=== PATIENT | female | born 1955 | race American Indian/Alaskan Native ===

== ENCOUNTER 2020-04-19 20:16 | Inpatient (IN) | payer MEDICARE ==
--- NOTE | 2020-04-19 22:13 | XRay Report ---
CHEST 2 VIEWS INDICATION / CLINICAL INFORMATION: fluid overload. sob. COMPARISON: 03/31/2020 FINDINGS: SUPPORT DEVICES: Stable, satisfactory device positioning. HEART / MEDIASTINUM: Moderate-large hiatal hernia. Cardiac silhouette is within normal limits. Hilar mediastinal contours demonstrate some cephalization of the pulmonary vasculature. LUNGS / PLEURA: No significant pulmonary or pleural abnormality. No pneumothorax. ADDITIONAL FINDINGS: No significant additional findings. IMPRESSION: 1. No acute findings. Signer Name: Rafiq Esteban MD Signed: 04/19/2020 10:09 PM Workstation Name: [id number]
[2020-04-19 23:04] LABS: Basophils # (Auto) 0.2 K/mm3 (0.0-0.1); Basophils % (Auto) 1.6 % (0.0-1.8); Eosinophils # (Auto) 0.1 K/mm3 (0.0-0.4); Eosinophils % (Auto) 1.1 % (0.0-4.3); Hematocrit 24.1 % (30.3-42.9); Hemoglobin 7.5 gm/dl (10.1-14.3); Lymphocytes # (Auto) 1.7 K/mm3 (1.2-5.4); Lymphocytes % (Auto) 15.1 % (13.4-35.0); Mean Corpuscular HGB Conc 31 % (30-34); Mean Corpuscular Volume 92 fl (79-97); Monocytes # (Auto) 1.3 K/mm3 (0.0-0.8); Monocytes % (Auto) 11.1 % (0.0-7.3); Platelet Count 253 K/mm3 (140-440); Red Blood Count 2.62 M/mm3 (3.65-5.03)
[2020-04-19 23:19] LABS: Red Cell Distribution Width 22.6 % (13.2-15.2)
[2020-04-19 23:26] LABS: INR 1.01 (0.87-1.13)
[2020-04-19 23:33] LABS: Alanine Aminotransferase 13 units/L (7-56); Albumin 3.3 g/dL (3.9-5); Blood Urea Nitrogen 14 mg/dL (7-17); Hemolysis Index 1
[2020-04-19 23:34] LABS: BUN/Creatinine Ratio 28
[2020-04-20] MEDS ORDERED: FUROSEMIDE 40 MG/4 ML INJ IV ONE (03:01)
[2020-04-20] MEDS ORDERED: dilTIAZem 25 MG/5 ML INJ IV ONE ×2 (03:01→04:11)
[2020-04-20] MEDS ORDERED: POTASSIUM CHLORIDE ER 20 MEQ TAB PO ONE (03:06)
--- NOTE | 2020-04-20 03:06 | Emergency Department Report ---
HPI - General Chief Complaint: Extremity Injury, Lower Time Seen by Provider: 04/20/20 02:46 - HPI HPI: Room 37 The patient is a 64-year-old female present with a chief complaint of lower extremity edema palpitations and shortness of breath. Patient has a history of CHF and atrial fibrillation. The patient states approximate 3 days ago she lost her medication of which Lasix and Eliquis are included. The patient states over the past 3 days she has noticed increased swelling to her both lower extremities, jitteriness and palpitations in addition to shortness of breath. Patient denies chest pain, cough or fever. Patient denies any known contact with Covid positive patients ED Past Medical Hx - Past Medical History Previous Medical History?: Yes Hx Hypertension: Yes Hx Congestive Heart Failure: Yes Hx Diabetes: Yes Hx Asthma: Yes (bronchitis) Additional medical history: afib. hypothyroid - Surgical History Past Surgical History?: Yes Hx Pacemaker: Yes Hx Cholecystectomy: Yes Additional Surgical History: left femur repair - Family History Family history: no significant - Social History Smoking Status: Former Smoker (None times a year) Substance Use Type: Alcohol (Occasional) ED Review of Systems ROS: Stated complaint: SWELLING IN FEET AND LEGS FROM SURGERY Other details as noted in HPI Constitutional: denies: fever Eyes: denies: eye pain ENT: denies: throat pain Respiratory: shortness of breath, SOB with exertion Cardiovascular: palpitations. denies: chest pain Endocrine: no symptoms reported Gastrointestinal: denies: abdominal pain Genitourinary: denies: dysuria Musculoskeletal: denies: back pain Neurological: denies: headache Hematological/Lymphatic: other (Bilateral lower extremity edema) Physical Exam - Physical Exam Vital Signs: Vital Signs 04/19/20 04/20/20 21:01 02:41 Temperature 98.5 F Pulse Rate 88 113 H Respiratory 16 20 Rate Blood Pressure 110/71 Blood Pressure 163/94 [Left] O2 Sat by Pulse 97 97 Oximetry Physical Exam: GENERAL: The patient is well-developed well-nourished female sitting on stretcher exhibiting mildly increased work of breathing. [] HEENT: Normocephalic. Atraumatic. Extraocular motions are intact. Patient has moist mucous membranes. NECK: Supple. Trachea midline CHEST/LUNGS: Clear to auscultation. There is slightly increased work of breathing HEART/CARDIOVASCULAR: Irregularly irregular. There is tachycardia. A. fib with RVR on the monitor ABDOMEN: Abdomen is soft, nontender. Patient has normal bowel sounds. There is no abdominal distention. SKIN: There is no rash. There is 2-3+ bilateral lower extremity pitting edema. There is no diaphoresis. NEURO: The patient is awake, alert, and oriented. The patient is cooperative. The patient has no focal neurologic deficits. The patient has normal speech MUSCULOSKELETAL: There is no evidence of acute injury. ED Course Vital Signs 04/19/20 04/20/20 21:01 02:41 Temperature 98.5 F Pulse Rate 88 113 H Respiratory 16 20 Rate Blood Pressure 110/71 Blood Pressure 163/94 [Left] O2 Sat by Pulse 97 97 Oximetry - Reevaluation(s) Reevaluation #1: 04/20/20 04:11 Patient not rate controlled after first round of diltiazem. Will administer second dose and initiate diltiazem drip ED Medical Decision Making - Lab Data Result diagrams: 04/19/20 22:19 04/19/20 22:19 Laboratory Tests 04/19/20 04/19/20 04/19/20 22:19 22:19 22:19 WBC 11.4 H RBC 2.62 L Hgb 7.5 L Hct 24.1 L MCV 92 MCH 29 MCHC 31 RDW 22.6 H Plt Count 253 Lymph % (Auto) 15.1 [place] % (Auto) 11.1 H Eos % (Auto) 1.1 Baso % (Auto) 1.6 Lymph # (Auto) 1.7 [place] # (Auto) 1.3 H Eos # (Auto) 0.1 Baso # (Auto) 0.2 H Seg Neutrophils % 71.1 H Seg Neutrophils # 8.1 H PT 13.2 INR 1.01 Sodium 139 Potassium 3.3 L Chloride 102.3 Carbon Dioxide 26 Anion Gap 14 BUN 14 Creatinine 0.5 L Estimated GFR > 60 BUN/Creatinine Ratio 28 Glucose 98 Calcium 8.0 L Total Bilirubin 0.90 AST 18 ALT 13 Alkaline Phosphatase 138 H NT-Pro-B Natriuret Pep Total Protein 5.9 L Albumin 3.3 L Albumin/Globulin Ratio 1.3 04/19/20 22:19 WBC RBC Hgb Hct MCV MCH MCHC RDW Plt Count Lymph % (Auto) [place] % (Auto) Eos % (Auto) Baso % (Auto) Lymph # (Auto) [place] # (Auto) Eos # (Auto) Baso # (Auto) Seg Neutrophils % Seg Neutrophils # PT INR Sodium Potassium Chloride Carbon Dioxide Anion Gap BUN Creatinine Estimated GFR BUN/Creatinine Ratio Glucose Calcium Total Bilirubin AST ALT Alkaline Phosphatase NT-Pro-B Natriuret Pep 476.3 Total Protein Albumin Albumin/Globulin Ratio - EKG Data -: EKG Interpreted by Me Rate: tachycardia (118 bpm) - EKG Data Interpretation: nonspecific ST-T wave mushtaq (T wave inversion in lead aVL), other (Atrial fibrillation with a rapid ventricular response) - Radiology Data Radiology results: report reviewed (Chest x-ray), image reviewed (Chest x-ray) interpreted by me: Chest x-ray-no focal infiltrates, no pneumothorax. No pulmonary edema appreciated [facility] [address] [place] [address] XRay Report Signed Patient: CONY MARTINEZ MR#: [id number] [birth year] : 1955 Acct:[id number] Age/Sex: 64 / F ADM Date: 04/19/20 Loc: ED Attending Dr: Ordering Physician: OSIRIS FALLON Date of Service: 04/19/20 Procedure(s): XR chest routine 2V Accession Number(s): [id number] cc: OSIRIS FALLON Fluoro Time In Minutes: CHEST 2 VIEWS INDICATION / CLINICAL INFORMATION: fluid overload. sob. COMPARISON: 03/31/2020 FINDINGS: SUPPORT DEVICES: Stable, satisfactory device positioning. HEART / MEDIASTINUM: Moderate- large hiatal hernia. Cardiac silhouette is within normal limits. Hilar mediastinal contours demonstrate some cephalization of the pulmonary vasculature. LUNGS / PLEURA: No significant pulmonary or pleural abnormality. No pneumothorax. ADDITIONAL FINDINGS: No significant additional findings. IMPRESSION: 1. No acute findings. Signer Name: Yoni Etseban MD Signed: 04/19/2020 10:09 PM Workstation Name: [id number] Transcribed By: Dictated By: YONI ESTEBAN III Electronically Authenticated By: YONI ESTEBAN III Signed Date/Time: 04/19/202208 DD/ 07 TD/TT: - Differential Diagnosis CHF exacerbation, pneumonia, A. fib with RVR Critical care attestation.: If time is entered above; I have spent that time in minutes in the direct care of this critically ill patient, excluding procedure time. ED Disposition Clinical Impression: CHF exacerbation, Atrial fibrillation with rapid ventricular response, Hypokalemia Disposition: OP ADMIT IP TO THIS HOSP Is pt being admited?: Yes Does the pt Need Aspirin: No Condition: Stable Referrals: PRIMARY CARE,MD [Primary Care Provider] - 3-5 Days Time of Disposition: 04:13 (Hospitalist paged)
[2020-04-20] MEDS ORDERED: APIXABAN 5 MG TAB PO ONE (04:13)
[2020-04-20] MEDS ORDERED: NITROGLYCERIN 0.4 MG TAB SUBL SL PRN (04:26)
[2020-04-20] MEDS ORDERED: MORPHINE 2 MG/1 ML INJ IV PRN (04:26)
[2020-04-20] MEDS ORDERED: DEXTROSE 50% IN WATER (25GM) 50 ML SYRINGE IV PRN (04:28)
[2020-04-20] MEDS ORDERED: ACETAMINOPHEN 325 MG TAB PO PRN (04:28)
[2020-04-20] MEDS ORDERED: ALBUTEROL 2.5 MG/3 ML NEBU IH PRN (04:28)
[2020-04-20] MEDS ORDERED: ONDANSETRON 4 MG/2 ML INJ IV PRN (04:28)
[2020-04-20] MEDS ORDERED: CALCIUM CHLORIDE 1,000 MG/10 ML SYRINGE IV ONE (04:31)
[2020-04-20] MEDS ORDERED: dilTIAZem/D5W 100 MG/100 ML BAG IV SCH (05:00)
--- NOTE | 2020-04-20 05:08 | History and Physical Report ---
History of Present Illness Date of examination: 04/20/20 Date of admission: 04/20/2020 Chief complaint: ble edema and palpitation History of present illness: 64-year-old -E[place]ian female with history of hypertension, A. fib on anticoagulation, diabetes, asthma, bronchitis, and hypothyroidism who presents to [facility] ED with complaints of bilateral lower extremity edema, palpitations, and shortness of breath. Patient has history of CHF and atrial fibrillation, and is usually rate controlled and on anticoagulation. However patient's medication was misplaced due to recent hospitalization in the facility (in [place]) requested that patient bring all her home meds in for use. Patient is unsure if she ever received her medication at discharge. Over the past 3 days she noticed increased swelling to bilateral lower extremities, palpitations, and worsening shortness of breath. She decided come into the ED for further evaluation and treatment. Denies chest pain, fever, chills, cough, sputum production, nausea, vomiting, diarrhea, headache, abdominal pain, generalized weakness, alterations in vision, or recent sick contacts Past History Past Medical History: other (Heart failure, A. fib, diabetes, asthma, bro nchitis, hypothyroidism, GERD) Past Surgical History: Other (Left femur repair (03/2020), pacemaker, cholecystectomy) Social history: lives with family, full code, other (Former smoker). denies: smoking, alcohol abuse Family history: hypertension Medications and Allergies Allergies Allergy/AdvReac Type Severity Reaction Status Date / Time ranitidine [From Zantac] Allergy Unknown Verified 04/19/20 21:10 Active Meds: Active Medications Acetaminophen (Acetaminophen 325 Mg Tab) 650 mg PO Q4H PRN PRN Reason: Pain MILD(1-3)/Fever >100.5/MULLINS Albuterol (Albuterol 2.5 Mg/3 Ml Nebu) 2.5 mg IH Q3HRT PRN PRN Reason: Shortness Of Breath Apixaban (Apixaban 5 Mg Tab) 5 mg PO Q12HR WILLIE; Protocol Aspirin (Aspirin 81 Mg Tab Chew) 81 mg PO QDAY WILLIE Dextrose (Dextrose 50% In Water (25gm) 50 Ml Syringe) 0 ml IV Q30MIN PRN; Protocol PRN Reason: Hypoglycemia Docusate Sodium (Docusate Sodium 100 Mg Cap) 100 mg PO BID WILLIE Furosemide (Furosemide 40 Mg/4 Ml Inj) 40 mg IV BID@0600,1800 WILLIE Diltiazem HCl (Cardizem/D5w 100mg/100ml) 100 mg in 100 mls @ 5 mls/hr IV TITR WILLIE; Protocol Insulin Human Lispro (Insulin Lispro 100 Unit/Ml) 0 unit SUB-Q ACHS WILLIE; Protocol Morphine Sulfate (Morphine 2 Mg/1 Ml Inj) 2 mg IV Q5MIN PRN PRN Reason: Chest Pain unrelieved by NTG Nitroglycerin (Nitroglycerin 0.4 Mg Tab Subl) 0.4 mg SL .Q5MIN PRN PRN Reason: Chest Pain Ondansetron HCl (Ondansetron 4 Mg/2 Ml Inj) 4 mg IV Q8H PRN PRN Reason: Nausea And Vomiting Oxycodone/Acetaminophen (Oxycodone /Acetaminophen 5-325mg Tab) 1 tab PO Q6H PRN PRN Reason: Pain, Moderate (4-6) Pantoprazole Sodium (Pantoprazole 40 Mg Tab) 40 mg PO BID WILLIE Potassium Chloride (Potassium Chloride Er 10 Meq Tab) 10 meq PO QDAY WILLIE Sodium Chloride (Sodium Chloride 0.9% 10 Ml Flush Syringe) 10 ml IV BID WILLIE Sodium Chloride (Sodium Chloride 0.9% 10 Ml Flush Syringe) 10 ml IV PRN PRN PRN Reason: LINE FLUSH Review of Systems All systems: negative (As noted in HPI) Exam - Physical Exam Narrative exam: Physical exam General appearance: Present: No acute distress, alert and oriented 3, - Egyptian older adult female - EENT Eyes: Present: PERRL, EOM intact ENT: hearing intact, normal dentition - Neck Neck: Present: supple, normal ROM - Respiratory Respiratory effort: Non-labored Respiratory: Diminished - Cardiovascular Heart rate: 150 (bpm) Rhythm: A. fib with RVR Heart Sounds: Present: S1 & S2. Absent: rub, click - Extremities Extremities: no ischemia, pulses intact, bilateral lower extremity 3+ pitting edema - Peripheral Assessment Peripheral Pulses: within normal limits - Abdominal General gastrointestinal: soft, non-tender, normal bowel sounds - Integumentary Integumentary: Present: warm, dry - Musculoskeletal Musculoskeletal: Able to move all extremities -Neurological Neurological: CN II-XII intact - Psychiatric Psychiatric: cooperative - Constitutional Vitals: Temp Pulse Resp BP Pulse Ox 98.5 F 118 H 20 131/87 97 01/25/21 21:01 04/20/20 03:53 04/20/20 02:41 04/20/20 03:53 04/20/20 02:41 Results - Labs CBC & Chem 7: 04/19/20 22:19 04/19/20 22:19 Labs: Laboratory Last Values WBC 11.4 K/mm3 (4.5-11.0) H 04/19/20 22:19 RBC 2.62 M/mm3 (3.65-5.03) L 04/19/20 22:19 Hgb 7.5 gm/dl (10.1-14.3) L 04/19/20 22:19 Hct 24.1 % (30.3-42.9) L 04/19/20 22:19 MCV 92 fl (79-97) 04/19/20 22:19 MCH 29 pg (28-32) 04/19/20 22:19 MCHC 31 % (30-34) 04/19/20 22:19 RDW 22.6 % (13.2-15.2) H 04/19/20 22:19 Plt Count 253 K/mm3 (140-440) 04/19/20 22:19 Lymph % (Auto) 15.1 % (13.4-35.0) 04/19/20 22:19 [place] % (Auto) 11.1 % (0.0-7.3) H 04/19/20 22:19 Eos % (Auto) 1.1 % (0.0-4.3) 04/19/20 22:19 Baso % (Auto) 1.6 % (0.0-1.8) 04/19/20 22:19 Lymph # (Auto) 1.7 K/mm3 (1.2-5.4) 04/19/20 22:19 [place] # (Auto) 1.3 K/mm3 (0.0-0.8) H 04/19/20 22:19 Eos # (Auto) 0.1 K/mm3 (0.0-0.4) 04/19/20 22:19 Baso # (Auto) 0.2 K/mm3 (0.0-0.1) H 04/19/20 22:19 Seg Neutrophils % 71.1 % (40.0-70.0) H 04/19/20 22:19 Seg Neutrophils # 8.1 K/mm3 (1.8-7.7) H 04/19/20 22:19 PT 13.2 Sec. (12.2-14.9) 04/19/20 22:19 INR 1.01 (0.87-1.13) 04/19/20 22:19 Sodium 139 mmol/L (137-145) 04/19/20 22:19 Potassium 3.3 mmol/L (3.6-5.0) L 04/19/20 22:19 Chloride 102.3 mmol/L (98-107) 04/19/20 22:19 Carbon Dioxide 26 mmol/L (22-30) 04/19/20 22:19 Anion Gap 14 mmol/L 04/19/20 22:19 BUN 14 mg/dL (7-17) 04/19/20 22:19 Creatinine 0.5 mg/dL (0.6-1.2) L 04/19/20 22:19 Estimated GFR > 60 ml/min 04/19/20 22:19 BUN/Creatinine Ratio 28 % 04/19/20 22:19 Glucose 98 mg/dL (65-100) 04/19/20 22:19 Calcium 8.0 mg/dL (8.4-10.2) L 04/19/20 22:19 Total Bilirubin 0.90 mg/dL (0.1-1.2) 04/19/20 22:19 AST 18 units/L (5-40) 04/19/20 22:19 ALT 13 units/L (7-56) 04/19/20 22:19 Alkaline Phosphatase 138 units/L (35-129) H 04/19/20 22:19 NT-Pro-B Natriuret Pep 476.3 pg/mL (0-900) 04/19/20 22:19 Total Protein 5.9 g/dL (6.3-8.2) L 04/19/20 22:19 Albumin 3.3 g/dL (3.9-5) L 04/19/20 22:19 Albumin/Globulin Ratio 1.3 % 04/19/20 22:19 - Imaging and Cardiology Chest x-ray: report reviewed, image reviewed [place]/IV: IV Catheter Type [Right INT / Saline Lock External Jugular] Assessment and Plan Assessment and plan: Atrial fibrillation with RVR -History of A. fib -Noncompliance with meds due to recent hospitalization and misplacement of meds -Received diltiazem bolus with no response in ED, started on diltiazem drip -Echo pending -Cardiology consult pending -Resume Eliquis -Resume home meds once medication reconciliation has been completed Acute on chronic CHF -Patient has 3+ bilateral lower extremity edema -Complaints of worsening dyspnea -Start IV Lasix twice a day -Echo pending -Cardiology consulted Hypokalemia -Potassium on admission -Ordered potassium replacement -Continue to monitor replete prn GERD -History of GERD, continue Protonix Anemia -Hemoglobin on admission 7.5 -Stable -No s/s of active bleeding -Continue to monitor hemoglobin -Transfuse as needed Asthma -History of asthma -Albuterol as needed DM -POC BG monitoring -SSI coverage prn -HgbA1C pending Hypothyroidism -History of hypothyroidism -TSH pending -We will need to resume Synthroid once medication reconciliation has been completed Advance Directives: No VTE prophylaxis?: Chemical, Mechanical Plan of care discussed with patient/family: Yes
[2020-04-20] MEDS: INSULIN LISPRO 100 UNIT/ML SUB-Q SCH ×4 (08:54→23:01)
[2020-04-20] MEDS ORDERED: FAMOTIDINE 20 MG/2 ML INJ IV SCH (10:00)
[2020-04-20] MEDS: ASPIRIN 81 MG TAB CHEW PO SCH (10:40)
[2020-04-20] MEDS: DOCUSATE SODIUM 100 MG CAP PO SCH ×2 (10:40→23:01)
[2020-04-20] MEDS: POTASSIUM CHLORIDE ER 10 MEQ TAB PO SCH (10:40)
[2020-04-20] MEDS: PANTOPRAZOLE 40 MG TAB PO SCH ×2 (10:40→23:01)
--- NOTE | 2020-04-20 11:09 | Consultation ---
History of Present Illness Consult date: 04/20/20 Requesting physician: JEREMIE ARNDT Consult reason: atrial fibrillation, congestive heart failure History of present illness: The patient is a 64-year-old female with a past medical history of HF, paroxysmal atrial fibrillation, anticoagulated on Eliquis, anemia requiring PRBC transfusion, "sick sinus syndrome" with PPM in situ, HTN, DM. She is previously unknown to our practice - she is in the process of relocating from [place]. She presented with c/o SOB, palpitations and BLE swelling for several days prior to arrival. She admits that she has not taken any prescription medications for 4 days prior to arrival because she lost her medications. Following arrival, pt was noted to be in AFib RVR and was initiated on IV cardizem. Labwork is noted to be significant for H/H 7.5/24.1. Pt denies any overt s/s bleeding. She reports recent h/o significant anemia requiring PRBC tx in [place] 4 months ago - she is unsure whether endoscopy or GI evaluation was performed at that time. Past History Past Medical History: other (as per HPI) Past Surgical History: Other (Left femur repair (03/2020), pacemaker, cholecystectomy) Social history: lives with family, full code, other (Former smoker). denies: smoking, alcohol abuse Family history: hypertension Medications and Allergies Allergies Allergy/AdvReac Type Severity Reaction Status Date / Time ranitidine [From Zantac] Allergy Unknown Verified 04/19/20 21:10 Active Meds: Active Medications Acetaminophen (Acetaminophen 325 Mg Tab) 650 mg PO Q4H PRN PRN Reason: Pain MILD(1-3)/Fever >100.5/MULLINS Albuterol (Albuterol 2.5 Mg/3 Ml Nebu) 2.5 mg IH Q3HRT PRN PRN Reason: Shortness Of Breath Aspirin (Aspirin 81 Mg Tab Chew) [address] [facility] Last Admin: 04/20/20 10:40 Dose: 81 mg Documented by: Dextrose (Dextrose 50% In Water (25gm) 50 Ml Syringe) 0 ml IV Q30MIN PRN; Protocol PRN Reason: Hypoglycemia Docusate Sodium (Docusate Sodium 100 Mg Cap) [address] [facility] Last Admin: 04/20/20 10:40 Dose: 100 mg Documented by: Furosemide (Furosemide 40 Mg/4 Ml Inj) 40 mg IV BID@0600,1800 [facility] Diltiazem HCl (Cardizem/D5w 100mg/100ml) 100 mg in 100 mls @ 5 mls/hr IV TITR [facility]; Protocol Last Admin: 04/20/20 05:15 Dose: 5 mg/hr, 5 mls/hr Documented by: Insulin Human Lispro (Insulin Lispro 100 Unit/Ml) 0 unit SUB-Q ACHS [facility]; Protocol Last Admin: 04/20/20 08:54 Dose: Not Given Documented by: Morphine Sulfate (Morphine 2 Mg/1 Ml Inj) 2 mg IV Q5MIN PRN PRN Reason: Chest Pain unrelieved by NTG Nitroglycerin (Nitroglycerin 0.4 Mg Tab Subl) 0.4 mg SL .Q5MIN PRN PRN Reason: Chest Pain Ondansetron HCl (Ondansetron 4 Mg/2 Ml Inj) 4 mg IV Q8H PRN PRN Reason: Nausea And Vomiting Oxycodone/Acetaminophen (Oxycodone /Acetaminophen 5-325mg Tab) 1 tab PO Q6H PRN PRN Reason: Pain, Moderate (4-6) Pantoprazole Sodium (Pantoprazole 40 Mg Tab) [address] [facility] Last Admin: 04/20/20 10:40 Dose: 40 mg Documented by: Potassium Chloride (Potassium Chloride Er 10 Meq Tab) [address] [facility] Last Admin: 04/20/20 10:40 Dose: 10 meq Documented by: Sodium Chloride (Sodium Chloride 0.9% 10 Ml Flush Syringe) [address] [facility] Last Admin: 04/20/20 10:40 Dose: 10 ml Documented by: Sodium Chloride (Sodium Chloride 0.9% 10 Ml Flush Syringe) 10 ml IV PRN PRN PRN Reason: LINE FLUSH Review of Systems Constitutional: no fever, no chills, no sweats Ears, nose, mouth and throat: no ear pain, no nose pain, no sinus pressure, no sinus pain Cardiovascular: orthopnea, palpitations, edema, shortness of breath, dyspnea on exertion, leg edema, decreased exercise tolerance, no chest pain, no syncope, no lightheadedness Respiratory: shortness of breath, dyspnea on exertion, no cough, no congestion, no wheezing Gastrointestinal: no abdominal pain, no nausea, no vomiting, no diarrhea, no constipation, no change in bowel habits Genitourinary Female: no pelvic pain, no flank pain, no dysuria, no urinary frequency, no urgency Musculoskeletal: no neck stiffness, no neck pain, no shooting arm pain, no arm numbness/tingling, no low back pain, no shooting leg pain Integumentary: no rash, no pruritis, no redness, no sores, no wounds Neurological: no head injury, no paralysis, no weakness, no parathesias, no numbness, no tingling, no seizures, no syncope Psychiatric: no anxiety Endocrine: no cold intolerance, no heat intolerance Hematologic/Lymphatic: no easy bruising, no easy bleeding Allergic/Immunologic: no urticaria Physical Examination Vital Signs Temp Pulse Resp BP Pulse Ox 98.5 F 88 16 110/71 97 04/19/20 21:01 04/19/20 21:01 04/19/20 21:01 04/19/20 21:01 04/19/20 21:01 General appearance: no acute distress HEENT: Positive: PERRL, Normocephaly, Mucus Membranes Moist Neck: Positive: neck supple, trachea midline Cardiac: Positive: irregularly irregular, S1/S2 Lungs: Positive: Decreased Breath Sounds Neuro: Positive: Grossly Intact Abdomen: Negative: Tender Skin: Negative: Rash Musculoskeletal: No Pain Extremities: Present: +2 Edema (BLE) Results 04/19/20 22:19 04/19/20 22:19 Cardiac Enzymes 04/19/20 Range/Units 22:19 AST 18 (5-40) units/L Coagulation 04/19/20 Range/Units 22:19 PT 13.2 (12.2-14.9) Sec. INR 1.01 (0.87-1.13) CBC 04/19/20 Range/Units 22:19 WBC 11.4 H (4.5-11.0) K/mm3 RBC 2.62 L (3.65-5.03) M/mm3 Hgb 7.5 L (10.1-14.3) gm/dl Hct 24.1 L (30.3-42.9) % Plt Count 253 (140-440) K/mm3 Lymph # (Auto) 1.7 (1.2-5.4) K/mm3 [place] # (Auto) 1.3 H (0.0-0.8) K/mm3 Eos # (Auto) 0.1 (0.0-0.4) K/mm3 Baso # (Auto) 0.2 H (0.0-0.1) K/mm3 Comprehensive Metabolic Panel 04/19/20 Range/Units 22:19 Sodium 139 (137-145) mmol/L Potassium 3.3 L (3.6-5.0) mmol/L Chloride 102.3 (98-107) mmol/L Carbon Dioxide 26 (22-30) mmol/L BUN 14 (7-17) mg/dL Creatinine 0.5 L (0.6-1.2) mg/dL Glucose 98 (65-100) mg/dL Calcium 8.0 L (8.4-10.2) mg/dL AST 18 (5-40) units/L ALT 13 (7-56) units/L Alkaline Phosphatase 138 H (35-129) units/L Total Protein 5.9 L (6.3-8.2) g/dL Albumin 3.3 L (3.9-5) g/dL - Imaging and Cardiology Echo: report reviewed EKG: report reviewed, image reviewed EKG interpretations - Telemetry EKG Rhythm: Sinus Rhythm - EKG Sinus rhythms and dysrhythmias: sinus rhythm Supraventricular dysrhythmia: atrial premature complexe Assessment and Plan tte reviewed - EF 55-60%, impaired relaxation, pacemaker wire in RV, mild pulm HTN, RVSP 45mmHg. On evaluation, pt has converted to SR with freq PACs. D/c cardizem gtt and initiate PO cardizem. Pt may tx to telemetry from cardiology standpoint. Agree with IV lasix. F/u BMP in AM. Pt is noted to have significant symptomatic anemia. She denies any overt s/s bleeding, is anticoagulated with Eliquis at home (although she was noncompliant with home medications for 4 days prior to arrival). She reports recent h/o significant anemia requiring PRBC tx in [place] 4 months ago - she is unsure whether endoscopy or GI evaluation was performed at that time. Pt would benefit from director long term care systemic AC in regards to PAFib. However, hold Eliquis in setting of significant anemia and recommend GI consultation per primary. Resume systemic AC if/when ok per GI team. F/u CBC in AM. Will follow. The patient has been seen in conjunction with Dr. Boy Vera who agrees with the assessment and plan of care. - Patient Problems (1) Paroxysmal atrial fibrillation with RVR Current Visit: Yes Status: Acute (2) Acute heart failure with preserved ejection fraction (HFpEF) Current Visit: Yes Status: Acute (3) Symptomatic anemia Current Visit: Yes Status: Acute (4) Cardiac pacemaker in situ Current Visit: Yes Status: Chronic (5) HTN (hypertension) Current Visit: Yes Status: Chronic (6) Diabetes Current Visit: Yes Status: Chronic
[2020-04-20] MEDS: oxyCODONE /ACETAMINOPHEN 5-325MG TAB PO PRN (12:43)
[2020-04-20] MEDS: dilTIAZem 60 MG TAB PO SCH ×2 (12:43→18:51)
[2020-04-20] MEDS: FUROSEMIDE 40 MG/4 ML INJ IV SCH ×2 (18:51→18:53)
[2020-04-20 19:33] LABS: Hematocrit 23.4 % (30.3-42.9); Hemoglobin 7.5 gm/dl (10.1-14.3)
[2020-04-20] MEDS ORDERED: APIXABAN 5 MG TAB PO SCH (20:00)
[2020-04-21] MEDS: dilTIAZem 60 MG TAB PO SCH ×5 (01:16→23:54)
[2020-04-21] MEDS: oxyCODONE /ACETAMINOPHEN 5-325MG TAB PO PRN ×3 (01:17→23:57)
[2020-04-21] MEDS: FUROSEMIDE 40 MG/4 ML INJ IV SCH (06:23)
[2020-04-21 06:35] LABS: Basophils % (Auto) 0.6 % (0.0-1.8); Eosinophils # (Auto) 0.1 K/mm3 (0.0-0.4); Eosinophils % (Auto) 2.1 % (0.0-4.3); Hematocrit 21.5 % (30.3-42.9); Hemoglobin 6.8 gm/dl (10.1-14.3); Lymphocytes # (Auto) 1.2 K/mm3 (1.2-5.4); Mean Corpuscular HGB Conc 32 % (30-34); Mean Corpuscular Volume 91 fl (79-97); Monocytes # (Auto) 0.9 K/mm3 (0.0-0.8); Monocytes % (Auto) 12.4 % (0.0-7.3); Platelet Count 195 K/mm3 (140-440); Red Blood Count 2.35 M/mm3 (3.65-5.03); Red Cell Distribution Width 23.6 % (13.2-15.2)
[2020-04-21 06:42] LABS: Blood Urea Nitrogen 10 mg/dL (7-17); Hemolysis Index 3
[2020-04-21 07:08] LABS: BUN/Creatinine Ratio 20
[2020-04-21] MEDS: INSULIN LISPRO 100 UNIT/ML SUB-Q SCH ×4 (08:13→23:25)
[2020-04-21] MEDS ORDERED: SODIUM CHLORIDE 0.9% 500 ML 500 ML IV NR (08:17)
[2020-04-21] MEDS: ASPIRIN 81 MG TAB CHEW PO SCH (09:15)
[2020-04-21] MEDS: PANTOPRAZOLE 40 MG TAB PO SCH ×2 (09:15→22:19)
[2020-04-21] MEDS: DOCUSATE SODIUM 100 MG CAP PO SCH ×2 (09:15→22:19)
[2020-04-21] MEDS: POTASSIUM CHLORIDE ER 10 MEQ TAB PO SCH (09:16)
[2020-04-21 10:50] LABS: Iron 21 ug/dL (37-170); Total Iron Binding Capacity 271 mcg/dL (250-450)
--- NOTE | 2020-04-21 11:44 | Progress Note ---
Assessment and Plan Assessment and plan: Atrial fibrillation with RVR -Rate slightly controlled on p.o. Cardizem. Telemetry - in and out of atrial fib -Cardiology evaluation appreciated -Holding eliquis due to anemia - GI to see. Acute on chronic diastolic CHF -Better this am -Reduce to Lasix daily. Monitor renal function -Cardiology recs appreciated GERD -History of GERD, continue Protonix Acute on chronic anemia -Hemoglobin on admission 7.5 -Now dropped to 6.8. Transfuse one unit of PRBCs -Check iron studies. Stool guaiac. She mentions she had colonscopy and EGD in [place] -Her stool is occasionally dark colored -GI has been consulted for further evaluation Asthma -History of asthma -Albuterol as needed DM -POC BG monitoring -SSI coverage prn Hypothyroidism -Check TSH and free T4 -Resume synthroid home dose Left hip pain Had ?hip replacement about 3 weeks ago Has not had a follow up appointment Will get CT imaging of the hip Advance Directives: No VTE prophylaxis?: Mechanical only Plan of care discussed with patient/family: Yes History Interval history: Patient seen and examined at bedside this morning Hemoglobin dropped to 6.8 this morning. Plan to transfuse 1 unit today Stool guaiac ordered-GI has been consulted Patient complains of left hip pain-she recently had surgery on the left hip about 3 weeks prior to presentation Hospitalist Physical - Physical exam Narrative exam: VITAL SIGNS: Reviewed. GENERAL: Awake HEAD: No signs of head trauma. EYES: Pupils are equal. Extraocular motions intact. MOUTH: Oropharynx is normal. NECK: No adenopathy, no JVD. CHEST: Chest with diminished breath sounds bilaterally. No wheezes, rales, or rhonchi. CARDIAC: normal S1 and S2, without murmurs, gallops, or rubs. ABDOMEN: Soft, non tender and non distended. No rebound or guarding, and no masses palpated. Bowel Sounds normal. MUSCULOSKELETAL: LLE -slight induration surrounding surgical site, has slight tenderness on palpation. NEUROLOGIC EXAM: Alert and oriented x3. No focal neurologic deficits SKIN: No obvious lesions - Constitutional Vitals: Temp Pulse Resp BP Pulse Ox 98.5 F 87 20 98/56 91 04/21/20 04:25 04/21/20 05:25 04/21/20 04:25 04/21/20 05:06 04/21/20 04:25 Results - Labs CBC & Chem 7: 04/22/20 06:00 04/22/20 06:00 Labs: Laboratory Last Values WBC 6.8 K/mm3 (4.5-11.0) 04/21/20 05:58 RBC 2.35 M/mm3 (3.65-5.03) L 04/21/20 05:58 Hgb 6.8 gm/dl (10.1-14.3) L 04/21/20 05:58 Hct 21.5 % (30.3-42.9) L 04/21/20 05:58 MCV 91 fl (79-97) 04/21/20 05:58 MCH 29 pg (28-32) 04/21/20 05:58 MCHC 32 % (30-34) 04/21/20 05:58 RDW 23.6 % (13.2-15.2) H 04/21/20 05:58 Plt Count 195 K/mm3 (140-440) 04/21/20 05:58 Lymph % (Auto) 17.0 % (13.4-35.0) 04/21/20 05:58 [place] % (Auto) 12.4 % (0.0-7.3) H 04/21/20 05:58 Eos % (Auto) 2.1 % (0.0-4.3) 04/21/20 05:58 Baso % (Auto) 0.6 % (0.0-1.8) 04/21/20 05:58 Lymph # (Auto) 1.2 K/mm3 (1.2-5.4) 04/21/20 05:58 [place] # (Auto) 0.9 K/mm3 (0.0-0.8) H 04/21/20 05:58 Eos # (Auto) 0.1 K/mm3 (0.0-0.4) 04/21/20 05:58 Baso # (Auto) 0.0 K/mm3 (0.0-0.1) 04/21/20 05:58 Seg Neutrophils % 67.9 % (40.0-70.0) 04/21/20 05:58 Seg Neutrophils # 4.6 K/mm3 (1.8-7.7) 04/21/20 05:58 PT 13.2 Sec. (12.2-14.9) 04/19/20 22:19 INR 1.01 (0.87-1.13) 04/19/20 22:19 Sodium 141 mmol/L (137-145) 04/21/20 05:58 Potassium 3.5 mmol/L (3.6-5.0) L 04/21/20 05:58 Chloride 105.8 mmol/L (98-107) 04/21/20 05:58 Carbon Dioxide 25 mmol/L (22-30) 04/21/20 05:58 Anion Gap 14 mmol/L 04/21/20 05:58 BUN 10 mg/dL (7-17) 04/21/20 05:58 Creatinine 0.5 mg/dL (0.6-1.2) L 04/21/20 05:58 Estimated GFR > 60 ml/min 04/21/20 05:58 BUN/Creatinine Ratio 20 % 04/21/20 05:58 Glucose 111 mg/dL (65-100) H 04/21/20 05:58 POC Glucose 121 mg/dL (70-105) H 04/20/20 22:28 Hemoglobin A1c 5.1 % (4-6) 04/20/20 05:15 Calcium 8.0 mg/dL (8.4-10.2) L 04/21/20 05:58 Iron 21 ug/dL (37-170) L 04/21/20 08:55 TIBC 271 mcg/dL (250-450) 04/21/20 08:55 Ferritin 192.5 ng/mL (10.0-200.0) 04/21/20 08:55 Total Bilirubin 0.90 mg/dL (0.1-1.2) 04/19/20 22:19 AST 18 units/L (5-40) 04/19/20 22:19 ALT 13 units/L (7-56) 04/19/20 22:19 Alkaline Phosphatase 138 units/L (35-129) H 04/19/20 22:19 NT-Pro-B Natriuret Pep 476.3 pg/mL (0-900) 04/19/20 22:19 Total Protein 5.9 g/dL (6.3-8.2) L 04/19/20 22:19 Albumin 3.3 g/dL (3.9-5) L 04/19/20 22:19 Albumin/Globulin Ratio 1.3 % 04/19/20 22:19 Blood Type O NEGATIVE 04/21/20 08:26 Antibody Screen Negative 04/21/20 08:26 Crossmatch See Detail 04/21/20 08:26 Microbiology: Microbiology 04/20/20 05:15 Peripheral/Venous Blood Culture - Preliminary NO GROWTH AFTER 24 HOURS 04/20/20 06:10 Peripheral/Venous Blood Culture - Preliminary NO GROWTH AFTER 24 HOURS - Diagnostic Impressions Diagnostic Impressions: Echocardiogram 04/20/20 04:26 Transthoracic Echocardiogram Indication: A fib RVR; CHF-AE BP: 121/64 HR: 107 Conclusions *Technically difficult and limted study. *Grossly, global left ventricular wall motion and contractility are within normal limits. *The estimated ejection fraction is 55-60%. *Abnormal left ventricular diastolic filling is observed, consistent with impaired relaxation. *A pacemaker wire is visualized in the right ventricle. *There is evidence of mild pulmonary hypertension. *There is no pericardial effusion. Findings Left Ventricle: The left ventricular chamber size is normal. There is no left ventricular hypertrophy. Global left ventricular wall motion and contractility are within normal limits. Global left ventricular systolic function is normal. The estimated ejection fraction is 55-60%. Abnormal left ventricular diastolic filling is observed, consistent with impaired relaxation. Left Atrium: The left atrium is mildly dilated. Right Ventricle: The right ventricular cavity size is normal. The right ventricular global systolic function is normal. A pacemaker wire is visualized in the right ventricle. Aortic Valve: There is no evidence of aortic valve thickening. There is trace of aortic regurgitation. Mitral Valve: The mitral valve leaflets do not appear thickened. There is trace of mitral regurgitation. Tricuspid Valve: The tricuspid valve leaflets are normal. There is mild tricuspid regurgitation. The right ventricular systolic pressure is calculated at 45 mmHg. There is evidence of mild pulmonary hypertension. Pulmonic Valve: There is no evidence of pulmonic valve thickening. There is trace pulmonic regurgitation. Pericardium: There is no pericardial effusion. Aorta: The aorta appears normal. Venous: The inferior vena cava is not visualized. Measurements Chambers 2D Name Value Normal Range IVSd (2D) 1.11 cm (0.6 - 1.1) LVPWd (2D) 0.91 cm (0.6 - 1.1) LVIDd (2D) 3.91 cm (3.7 - 5.6) LVIDs (2D) 2.58 cm (2 - 3.8) LV FS (2D) 33.99 % - EF Teichholz (2D) 63.56 % - Ao root diameter (2D) 2.93 cm (2 - 3.7) Volumes/Mass Name Value Normal Range LA ESV SP 4CH (A/L) 80.85 ml - LA ESV SP 2CH (A/L) 70.84 ml - LA ESV BP (A/L) 78.34 ml - LA ESV BP (A/L) index 40.59 ml/m2 - LA ESV SP 4CH (MOD) 76.33 ml - LA ESV SP 2CH (MOD) 67.49 ml - LA ESV BP (MOD) 73.9 ml - LA ESV BP (MOD) index 38.29 ml/m2 - Diastolic/Systolic Function Name Value Normal Range MV E-wave Vmax 0.77 m/sec - MV deceleration time 207.26 msec - MV A-wave Vmax 0.67 m/sec - MV E:A ratio 1.15 ratio - Aortic Valve Name Value Normal Range AV Vmax 1.73 m/sec - AV VTI 29.62 cm - AV peak gradient 11.9 mmHg - AV mean gradient 6.35 mmHg - LVOT diameter 2.13 cm - LVOT Vmax 1.09 m/sec - LVOT VTI 21.25 cm - LVOT peak gradient 5.06 mmHg - LVOT mean gradient 2.74 mmHg - SV LVOT 75.59 ml - WILIAN (continuity Vmax) 2.24 cm2 - WILIAN (continuity VTI) 2.55 cm2 - AR PHT 492.62 msec - AR peak gradient 80.97 mmHg - Ascending Ao 3.25 cm - Tricuspid Valve Name Value Normal Range TR Vmax 3.06 m/sec - TR peak gradient 37 mmHg - RAP 8 mmHg - RVSP 45 mmHg - Pulmonic Valve/Qp:Qs Name Value Normal Range PV Vmax 1.37 m/sec - PV peak gradient 7.54 mmHg - NM end-diastolic Vmax 1.42 m/sec - PV acceleration time 91.34 msec - [place]/IV: Voiding Method Toilet IV Catheter Type [Right INT / Saline Lock External Jugular] Active Medications - Current Medications Current Medications: Generic Name Dose Route Start Last Admin Trade Name Freq PRN Reason Stop Dose Admin Acetaminophen 650 mg 04/20/20 04:28 Acetaminophen 325 Mg Tab PO Q4H PRN Pain MILD(1-3)/Fever >100.5/MULLINS Albuterol 2.5 mg 04/20/20 04:28 Albuterol 2.5 Mg/3 Ml Nebu IH Q3HRT PRN Shortness Of Breath Dextrose 0 ml 04/20/20 04:28 Dextrose 50% In Water (25gm) 50 Ml Syringe IV Q30MIN PRN Hypoglycemia Protocol Diltiazem HCl 60 mg 04/20/20 12:00 04/21/20 05:06 Diltiazem 60 Mg Tab PO Not Given Q6HR WILLIE Docusate Sodium 100 mg 04/20/20 10:00 04/21/20 09:15 Docusate Sodium 100 Mg Cap PO 100 mg BID WILLIE Administration Furosemide 40 mg 04/20/20 18:00 04/21/20 06:23 Furosemide 40 Mg/4 Ml Inj IV 40 mg BID@0600,1800 WILLIE Administration Sodium Chloride 500 mls @ 0 mls/hr 04/21/20 08:17 Nacl 0.9% 500 Ml IV 04/22/20 08:16 ONCE NR As Directed Insulin Human Lispro 0 unit 04/20/20 07:30 04/21/20 08:13 Insulin Lispro 100 Unit/Ml SUB-Q Not Given ACHS [facility] Protocol Morphine Sulfate 2 mg 04/20/20 04:26 Morphine 2 Mg/1 Ml Inj IV Q5MIN PRN Chest Pain unrelieved by NTG Nitroglycerin 0.4 mg 04/20/20 04:26 Nitroglycerin 0.4 Mg Tab Subl SL .Q5MIN PRN Chest Pain Ondansetron HCl 4 mg 04/20/20 04:28 Ondansetron 4 Mg/2 Ml Inj IV Q8H PRN Nausea And Vomiting Oxycodone/Acetaminophen 1 tab 04/20/20 04:28 04/21/20 01:17 Oxycodone /Acetaminophen 5-325mg Tab PO 1 tab Q6H PRN Administration Pain, Moderate (4-6) Pantoprazole Sodium 40 mg 04/20/20 10:00 04/21/20 09:15 Pantoprazole 40 Mg Tab PO 40 mg BID WILLIE Administration Potassium Chloride 10 meq 04/20/20 10:00 04/21/20 09:16 Potassium Chloride Er 10 Meq Tab PO 10 meq QDAY WILLIE Administration Sodium Chloride 10 ml 04/20/20 10:00 04/21/20 09:21 Sodium Chloride 0.9% 10 Ml Flush Syringe IV 10 ml BID WILLIE Administration Sodium Chloride 10 ml 04/20/20 04:28 Sodium Chloride 0.9% 10 Ml Flush Syringe IV PRN PRN LINE FLUSH
[2020-04-21] MEDS ORDERED: POTASSIUM CHLORIDE ER 20 MEQ TAB PO NR (11:52)
--- NOTE | 2020-04-21 13:17 | Progress Note ---
Assessment and Plan pt is feeling a little better, BLE swelling improved although she is noted to have increased left hip swelling- pt reports hip surgery 3 weeks ago in [place], h/o anticoagulation with Eliquis, anemia noted to be worsening - ? intra articular bleeding. Abdomen/pelvis CT and PRBC tx ordered per primary. GI consultation pending. Pt may also benefit from ortho consultation. Cont present cardiac management. Cont to hold systemic AC. F/u BMP and CBC in AM. The patient has been seen in conjunction with Dr. Boy Vera who agrees with the assessment and plan of care. - Patient Problems (1) Paroxysmal atrial fibrillation with RVR Current Visit: Yes Status: Acute (2) Acute heart failure with preserved ejection fraction (HFpEF) Current Visit: Yes Status: Acute (3) Symptomatic anemia Current Visit: Yes Status: Acute (4) Cardiac pacemaker in situ Current Visit: Yes Status: Chronic (5) HTN (hypertension) Current Visit: Yes Status: Chronic (6) Diabetes Current Visit: Yes Status: Chronic Subjective Date of service: 04/21/20 Principal diagnosis: HF; anemia Interval history: pt resting in bed, feeling a little better, BLE swelling improved although she is noted to have increased left hip swelling- pt reports hip surgery 3 weeks ago in [place]. tele reviewed - in SR with PACs HR 80s - 100s. Objective Last Vital Signs Temp 98.0 F 04/21/20 12:12 Pulse 89 04/21/20 12:24 Resp 18 04/21/20 12:12 BP 102/62 04/21/20 12:24 Pulse Ox 97 04/21/20 12:12 - Physical Examination General: No Apparent Distress HEENT: Positive: PERRL, Normocephaly, Mucus Membranes Moist Neck: Positive: neck supple, trachea midline Cardiac: Positive: Reg Rate and Rhythm, S1/S2 Lungs: Positive: Decreased Breath Sounds Neuro: Positive: Grossly Intact Abdomen: Negative: Tender Skin: Negative: Rash Musculoskeletal: No Pain Extremities: Present: +2 Edema (BLE) - Labs and Meds CBC 04/20/20 04/21/20 Range/Units 18:14 05:58 WBC 6.8 (4.5-11.0) K/mm3 RBC 2.35 L (3.65-5.03) M/mm3 Hgb 7.5 L 6.8 L (10.1-14.3) gm/dl Hct 23.4 L 21.5 L (30.3-42.9) % Plt Count 195 (140-440) K/mm3 Lymph # (Auto) 1.2 (1.2-5.4) K/mm3 [place] # (Auto) 0.9 H (0.0-0.8) K/mm3 Eos # (Auto) 0.1 (0.0-0.4) K/mm3 Baso # (Auto) 0.0 (0.0-0.1) K/mm3 Comprehensive Metabolic Panel 04/21/20 Range/Units 05:58 Sodium 141 (137-145) mmol/L Potassium 3.5 L (3.6-5.0) mmol/L Chloride 105.8 (98-107) mmol/L Carbon Dioxide 25 (22-30) mmol/L BUN 10 (7-17) mg/dL Creatinine 0.5 L (0.6-1.2) mg/dL Glucose 111 H (65-100) mg/dL Calcium 8.0 L (8.4-10.2) mg/dL - Imaging and Cardiology EKG: report reviewed, image reviewed Echo: report reviewed ( EF 55-60%, impaired relaxation, pacemaker wire in RV, mild pulm HTN, RVSP 45mmHg. ) - Telemetry EKG Rhythm: Sinus Rhythm - EKG Sinus rhythms and dysrhythmias: sinus rhythm
--- NOTE | 2020-04-21 16:17 | Consultation ---
History of Present Illness - Reason for Consult Consult date: 04/21/20 Anemia Requesting physician: JEZ ARRIAGA - History of Present Illness 64 yo BF admitted with CARDENAS and CHF as of 04/18/20, on whom I am consulted for anemia. Pt states she has a hx of CHF and A fib, and is on Eliquis. She was found to be anemic, and Hgb decreased to 6.8, from ~7.5. Pt states she has a known lifelong hx of anemia, and had EGD/Colonoscopy ~ 1 yr ago, at [facility] in [place], [place]. She was anemic to point of transfusion in and 01/2020. She does not know the etiology of her anemia, but has been treated with vitamins in the past. No abd pain, N/V, GI bleed, weight loss. No change in BMs. She has chronic GERD and a known HH, and is on daily Protonix with good control. No dysphagia. She came to [place] this month after L hip fx and surgery, to be with her 2 children for support. Meds reviewed. Past History Past Medical History: atrial fib, anemia, GERD, heart failure, other (as per HPI) Past Surgical History: Other (Left femur repair (03/2020), pacemaker, cholecystectomy) Social history: lives with family, full code, other (Former smoker). denies: smoking, alcohol abuse Family history: hypertension Medications and Allergies Allergies Allergy/AdvReac Type Severity Reaction Status Date / Time ranitidine [From Zantac] Allergy Unknown Verified 04/19/20 21:10 Active Meds: Active Medications Acetaminophen (Acetaminophen 325 Mg Tab) 650 mg PO Q4H PRN PRN Reason: Pain MILD(1-3)/Fever >100.5/MULLINS Albuterol (Albuterol 2.5 Mg/3 Ml Nebu) 2.5 mg IH Q3HRT PRN PRN Reason: Shortness Of Breath Dextrose (Dextrose 50% In Water (25gm) 50 Ml Syringe) 0 ml IV Q30MIN PRN; Protocol PRN Reason: Hypoglycemia Diltiazem HCl (Diltiazem 60 Mg Tab) 60 mg PO Q6HR [facility] Last Admin: 04/21/20 12:24 Dose: 60 mg Documented by: Docusate Sodium (Docusate Sodium 100 Mg Cap) 100 mg PO BID [facility] Last Admin: 04/21/20 09:15 Dose: 100 mg Documented by: Furosemide (Furosemide 40 Mg/4 Ml Inj) 40 mg IV DAILY@0600 [facility] Sodium Chloride (Nacl 0.9% 500 Ml) 500 mls @ 0 mls/hr IV ONCE NR Stop: 04/22/20 08:16 Insulin Human Lispro (Insulin Lispro 100 Unit/Ml) 0 unit SUB-Q ACHS [facility]; Protocol Last Admin: 04/21/20 11:30 Dose: Not Given Documented by: Morphine Sulfate (Morphine 2 Mg/1 Ml Inj) 2 mg IV Q5MIN PRN PRN Reason: Chest Pain unrelieved by NTG Nitroglycerin (Nitroglycerin 0.4 Mg Tab Subl) 0.4 mg SL .Q5MIN PRN PRN Reason: Chest Pain Ondansetron HCl (Ondansetron 4 Mg/2 Ml Inj) 4 mg IV Q8H PRN PRN Reason: Nausea And Vomiting Oxycodone/Acetaminophen (Oxycodone /Acetaminophen 5-325mg Tab) 1 tab PO Q6H PRN PRN Reason: Pain, Moderate (4-6) Last Admin: 04/21/20 01:17 Dose: 1 tab Documented by: Pantoprazole Sodium (Pantoprazole 40 Mg Tab) 40 mg PO BID [facility] Last Admin: 04/21/20 09:15 Dose: 40 mg Documented by: Potassium Chloride (Potassium Chloride Er 10 Meq Tab) 10 meq PO QDAY [facility] Last Admin: 04/21/20 09:16 Dose: 10 meq Documented by: Potassium Chloride (Potassium Chloride Er 20 Meq Tab) 40 meq PO ONCE NR Stop: 04/21/20 18:00 Last Admin: 04/21/20 12:25 Dose: 40 meq Documented by: Sodium Chloride (Sodium Chloride 0.9% 10 Ml Flush Syringe) 10 ml IV BID [facility] Last Admin: 04/21/20 09:21 Dose: 10 ml Documented by: Sodium Chloride (Sodium Chloride 0.9% 10 Ml Flush Syringe) 10 ml IV PRN PRN PRN Reason: LINE FLUSH Review of Systems All systems: negative (as per HPI) Exam - Constitutional Vitals: Temp Pulse Resp BP Pulse Ox 98.0 F 89 18 102/62 97 04/21/20 12:12 04/21/20 12:24 04/21/20 12:12 04/21/20 12:24 04/21/20 12:12 General appearance: Present: no acute distress - EENT Eyes: Present: PERRL, EOM intact ENT: hearing intact - Neck Neck: Present: supple - Respiratory Respiratory effort: normal Respiratory: bilateral: CTA - Cardiovascular Rhythm: regular Heart Sounds: Present: S1 & S2 - Extremities Extremities: No edema - Abdominal General gastrointestinal: Present: soft, non-tender Results - Labs CBC & Chem 7: 04/21/20 05:58 04/21/20 05:58 Labs: Abnormal lab results 04/20/20 04/20/20 04/21/20 Range/Units 18:14 22:28 05:58 RBC 2.35 L (3.65-5.03) M/mm3 Hgb 7.5 L 6.8 L (10.1-14.3) gm/dl Hct 23.4 L 21.5 L (30.3-42.9) % RDW 23.6 H (13.2-15.2) % [place] % (Auto) 12.4 H (0.0-7.3) % [place] # (Auto) 0.9 H (0.0-0.8) K/mm3 Potassium (3.6-5.0) mmol/L Creatinine (0.6-1.2) mg/dL Glucose (65-100) mg/dL POC Glucose 121 H (70-105) mg/dL Calcium (8.4-10.2) mg/dL Iron (37-170) ug/dL Crossmatch 04/21/20 04/21/20 04/21/20 Range/Units 05:58 08:26 08:55 RBC (3.65-5.03) M/mm3 Hgb (10.1-14.3) gm/dl Hct (30.3-42.9) % RDW (13.2-15.2) % [place] % (Auto) (0.0-7.3) % [place] # (Auto) (0.0-0.8) K/mm3 Potassium 3.5 L (3.6-5.0) mmol/L Creatinine 0.5 L (0.6-1.2) mg/dL Glucose 111 H (65-100) mg/dL POC Glucose (70-105) mg/dL Calcium 8.0 L (8.4-10.2) mg/dL Iron 21 L (37-170) ug/dL Crossmatch See Detail Assessment and Plan 1. Iron deficiency anemia - long-standing, based on pt history. No clear evidence of GI bleed, and pt has been evaluated in the past. - check stool for occult blood - continue daily PPI - transfuse as needed - give IV iron if available - get records (pt calling family to obtain them) - if no adriana blood, would resume anticoagulation for now, as pt has been on it.
--- NOTE | 2020-04-21 22:36 | Cat Scan Report ---
CT PELVIS WITHOUT CONTRAST INDICATION / CLINICAL INFORMATION: Rule out left hip hematoma s/p hip surgery. TECHNIQUE: Axial CT images were obtained through the pelvis without contrast. All CT scans at this location are performed using CT dose reduction for ALARA by means of automated exposure control. COMPARISON: CT hip 03/16/2020 FINDINGS: BONES: No definite acute fracture. Chronic, healing phase fracture deformities involving the left inf erior and superior pubic rami. A sclerotic line courses through the left sacral ala possibly represen ting a healing fracture. No osseous lesion. HIP JOINTS: Postoperative change of left total hip arthroplasty with satisfactory appearance. Right h ip demonstrates no significant abnormality. SACROILIAC JOINTS: No significant abnormality. SOFT TISSUES: 5.5 x 7.9 x 11.3 cm (AP by TV by CC) heterogeneous collection in the left lateral pelvi c wall, in the operative region. LOWER LUMBAR SPINE: No significant abnormality. SOFT TISSUES WITHIN PELVIS: No acute findings. ADDITIONAL FINDINGS: None. IMPRESSION: 1. Large heterogeneous fluid collection in the left pelvic sidewall operative region likely represent ing a hematoma. 2. Postoperative change of left total hip arthroplasty with satisfactory appearance. 3. Healing left pubic rami fractures, as well as a sclerotic line coursing through the left sacral al a likely representing a healing fracture. No acute fracture is identified. Signer Name: Rafiq Esteban MD Signed: 04/21/2020 10:31 PM Workstation Name: [id number]
[2020-04-22] MEDS ORDERED: FUROSEMIDE 40 MG/4 ML INJ IV SCH (06:00)
[2020-04-22] MEDS: dilTIAZem 60 MG TAB PO SCH ×3 (06:10→17:41)
[2020-04-22] MEDS: oxyCODONE /ACETAMINOPHEN 5-325MG TAB PO PRN ×2 (06:16→21:28)
[2020-04-22 06:21] LABS: Hematocrit 25.4 % (30.3-42.9); Mean Corpuscular HGB Conc 31 % (30-34); Mean Corpuscular Volume 92 fl (79-97); Platelet Count 242 K/mm3 (140-440); Red Blood Count 2.75 M/mm3 (3.65-5.03)
[2020-04-22 06:22] LABS: Red Cell Distribution Width 23.6 % (13.2-15.2)
[2020-04-22] MEDS: INSULIN LISPRO 100 UNIT/ML SUB-Q SCH ×4 (07:30→21:29)
[2020-04-22 07:47] LABS: Blood Urea Nitrogen 9 mg/dL (7-17); Calcium 8.2 mg/dL (8.4-10.2); Hemolysis Index 7
[2020-04-22 08:33] LABS: BUN/Creatinine Ratio 18
[2020-04-22] MEDS: POTASSIUM CHLORIDE ER 10 MEQ TAB PO SCH (09:42)
[2020-04-22] MEDS: DOCUSATE SODIUM 100 MG CAP PO SCH ×2 (09:42→21:28)
[2020-04-22] MEDS: PANTOPRAZOLE 40 MG TAB PO SCH (09:42)
--- NOTE | 2020-04-22 10:59 | Progress Note ---
Assessment and Plan Pt is feeling better today. Pt reports hip surgery 3 weeks ago in [place], h/o anticoagulation with Eliquis. Pelvis CT noted - large fluid collection in left pelvic sidewall operative region likely representing a hematoma. Ortho consultation is pending. Cont present cardiac management. Cont to hold systemic AC pending ortho recs - per GI, ok to resume systemic AC. F/u CBC in AM. The patient has been seen in conjunction with Dr. Boy Vera who agrees with the assessment and plan of care. - Patient Problems (1) Paroxysmal atrial fibrillation with RVR Current Visit: Yes Status: Acute (2) Acute heart failure with preserved ejection fraction (HFpEF) Current Visit: Yes Status: Acute (3) Symptomatic anemia Current Visit: Yes Status: Acute (4) Cardiac pacemaker in situ Current Visit: Yes Status: Chronic (5) HTN (hypertension) Current Visit: Yes Status: Chronic (6) Diabetes Current Visit: Yes Status: Chronic Subjective Date of service: 04/22/20 Principal diagnosis: HF; anemia Interval history: pt resting in bed, feeling better. tele reviewed - in SR with PACs HR 80s. Objective Last Vital Signs Temp 97.3 F L 04/22/20 07:58 Pulse 94 H 04/22/20 07:58 Resp 18 04/22/20 07:58 BP 101/62 04/22/20 07:58 Pulse Ox 96 04/22/20 07:58 - Physical Examination General: No Apparent Distress HEENT: Positive: PERRL, Normocephaly, Mucus Membranes Moist Neck: Positive: neck supple, trachea midline Cardiac: Positive: Reg Rate and Rhythm, S1/S2 Lungs: Positive: Decreased Breath Sounds Neuro: Positive: Grossly Intact Abdomen: Negative: Tender Skin: Negative: Rash Musculoskeletal: No Pain Extremities: Present: +2 Edema (BLE) - Labs and Meds CBC 04/22/20 Range/Units 06:00 WBC 7.0 (4.5-11.0) K/mm3 RBC 2.75 L (3.65-5.03) M/mm3 Hgb 8.0 L (10.1-14.3) gm/dl Hct 25.4 L (30.3-42.9) % Plt Count 242 (140-440) K/mm3 Comprehensive Metabolic Panel 04/22/20 Range/Units 06:00 Sodium 142 (137-145) mmol/L Potassium 3.7 (3.6-5.0) mmol/L Chloride 102.8 (98-107) mmol/L Carbon Dioxide 24 (22-30) mmol/L BUN 9 (7-17) mg/dL Creatinine 0.5 L (0.6-1.2) mg/dL Glucose 102 H (65-100) mg/dL Calcium 8.2 L (8.4-10.2) mg/dL - Imaging and Cardiology EKG: report reviewed, image reviewed Echo: report reviewed ( EF 55-60%, impaired relaxation, pacemaker wire in RV, mild pulm HTN, RVSP 45mmHg. ) - EKG Sinus rhythms and dysrhythmias: sinus rhythm
--- NOTE | 2020-04-22 17:28 | Progress Note ---
Assessment and Plan 1. Iron deficiency anemia - long-standing, based on pt history. Hgb stable at 8.0. No clear evidence of GI bleed, and pt has been evaluated in the past. One factor for her anemia is the post-op hematoma noted on CT. - check stool for occult blood - continue daily PPI - transfuse as needed - give IV iron if available - get records (pt calling family to obtain them) - would resume anticoagulation for now, as pt has been on it. No plans for imminent further GI evaluation. Subjective Date of service: 04/22/20 Principal diagnosis: HF; anemia Interval history: Pt doing well. NO complaints. Objective - Constitutional Vitals: Vital Signs - 12hr 04/22/20 04/22/20 06:10 07:58 Temperature 97.3 F L Pulse Rate 94 H 94 H Respiratory 18 Rate Blood Pressure 121/67 101/62 O2 Sat by Pulse 96 Oximetry General appearance: Present: no acute distress - EENT Eyes: PERRL, EOM intact ENT: hearing intact - Respiratory Respiratory effort: normal - Gastrointestinal General gastrointestinal: Present: soft, non-tender - Labs CBC & Chem 7: 04/22/20 06:00 04/22/20 06:00 Labs: Abnormal lab results 04/21/20 04/21/20 04/22/20 Range/Units 08:00 08:26 06:00 RBC (3.65-5.03) M/mm3 Hgb (10.1-14.3) gm/dl Hct (30.3-42.9) % RDW (13.2-15.2) % Creatinine (0.6-1.2) mg/dL Glucose (65-100) mg/dL POC Glucose 106 H (70-105) mg/dL Calcium (8.4-10.2) mg/dL TSH (0.270-4.200) mlU/mL Free T4 1.61 H (0.76-1.46) ng/dL Crossmatch See Detail 04/22/20 04/22/20 04/22/20 Range/Units 06:00 06:00 06:00 RBC 2.75 L (3.65-5.03) M/mm3 Hgb 8.0 L (10.1-14.3) gm/dl Hct 25.4 L (30.3-42.9) % RDW 23.6 H (13.2-15.2) % Creatinine 0.5 L (0.6-1.2) mg/dL Glucose 102 H (65-100) mg/dL POC Glucose (70-105) mg/dL Calcium 8.2 L (8.4-10.2) mg/dL TSH 6.410 H (0.270-4.200) mlU/mL Free T4 (0.76-1.46) ng/dL Crossmatch 04/22/20 Range/Units 07:57 RBC (3.65-5.03) M/mm3 Hgb (10.1-14.3) gm/dl Hct (30.3-42.9) % RDW (13.2-15.2) % Creatinine (0.6-1.2) mg/dL Glucose (65-100) mg/dL POC Glucose 114 H (70-105) mg/dL Calcium (8.4-10.2) mg/dL TSH (0.270-4.200) mlU/mL Free T4 (0.76-1.46) ng/dL Crossmatch Medications & Allergies - Medications Allergies/Adverse Reactions: Allergies ranitidine [From Zantac] Allergy (Verified 04/19/20 21:10) Unknown Home Medications: Home Medications Medication Instructions Recorded Confirmed Last Taken Type Apixaban [Eliquis] 5 mg PO DAILY #30 tablet 04/22/20 Unknown Rx Hydroxyzine HCl [hydrOXYzine] 50 mg PO HS 04/22/20 04/22/20 Unknown History Oxycodone HCl/Acetaminophen 1 each PO Q6HR PRN #30 tablet 04/22/20 Unknown Rx [Percocet 10/325 mg] Pregabalin 150 mg PO DAILY 04/22/20 04/22/20 Unknown History amLODIPine [Norvasc] 5 mg PO DAILY 04/22/20 04/22/20 Unknown History Active Medications: Generic Name Dose Route Start Last Admin Trade Name Freq PRN Reason Stop Dose Admin Acetaminophen 650 mg 04/20/20 04:28 Acetaminophen 325 Mg Tab PO Q4H PRN Pain MILD(1-3)/Fever >100.5/MULLINS Albuterol 2.5 mg 04/20/20 04:28 Albuterol 2.5 Mg/3 Ml Nebu IH Q3HRT PRN Shortness Of Breath Dextrose 0 ml 04/20/20 04:28 Dextrose 50% In Water (25gm) 50 Ml Syringe IV Q30MIN PRN Hypoglycemia Protocol Diltiazem HCl 60 mg 04/20/20 12:00 04/22/20 12:56 Diltiazem 60 Mg Tab PO 60 mg Q6HR WILLIE Administration Docusate Sodium 100 mg 04/20/20 10:00 04/22/20 09:42 Docusate Sodium 100 Mg Cap PO 100 mg BID WILLIE Administration Furosemide 40 mg 04/22/20 18:00 Furosemide 40 Mg/4 Ml Inj IV 0600,1800 [facility] Insulin Human Lispro 0 unit 04/20/20 07:30 04/22/20 12:40 Insulin Lispro 100 Unit/Ml SUB-Q Not Given ACHS [facility] Protocol Morphine Sulfate 2 mg 04/20/20 04:26 Morphine 2 Mg/1 Ml Inj IV Q5MIN PRN Chest Pain unrelieved by NTG Nitroglycerin 0.4 mg 04/20/20 04:26 Nitroglycerin 0.4 Mg Tab Subl SL .Q5MIN PRN Chest Pain Ondansetron HCl 4 mg 04/20/20 04:28 Ondansetron 4 Mg/2 Ml Inj IV Q8H PRN Nausea And Vomiting Oxycodone/Acetaminophen 1 tab 04/20/20 04:28 04/22/20 06:16 Oxycodone /Acetaminophen 5-325mg Tab PO 1 tab Q6H PRN Administration Pain, Moderate (4-6) Pantoprazole Sodium 40 mg 04/22/20 10:00 04/22/20 09:42 Pantoprazole 40 Mg Tab PO 40 mg QDAC WILLIE Administration Potassium Chloride 10 meq 04/20/20 10:00 04/22/20 09:42 Potassium Chloride Er 10 Meq Tab PO 10 meq QDAY WILLIE Administration Sodium Chloride 10 ml 04/20/20 10:00 04/22/20 09:42 Sodium Chloride 0.9% 10 Ml Flush Syringe IV 10 ml BID WILLIE Administration Sodium Chloride 10 ml 04/20/20 04:28 Sodium Chloride 0.9% 10 Ml Flush Syringe IV PRN PRN LINE FLUSH
[2020-04-22] MEDS: FUROSEMIDE 40 MG/4 ML INJ IV SCH (17:41)
--- NOTE | 2020-04-22 17:57 | Progress Note ---
Assessment and Plan Assessment and plan: Atrial fibrillation with RVR, acute on chronic -Rate slightly controlled on p.o. Cardizem. -Cardiology evaluation appreciated -Holding eliquis due to anemia Acute on chronic diastolic CHF -Presented with a proBNP of 476 -IV Lasix twice daily -Potassium chloride 10 mEq daily -Cardiology recs appreciated -04/20 TTE shows gross global left ventricular wall motion and contractility are within normal limits, some ejection fraction 55 to 60%, impaired relaxation, pacemaker wire in the right ventricle, no pericardial effusion with evidence of mild pulmonary hypertension -Strict intake and output -Daily weights Left hip hematoma -Had hip replacement about 3 weeks ago and has not had a follow up appointment -04/16 CT left hip -04/21 CT pelvis without contrast shows chronic healing phase fracture deform ities involving the left inferior and superior pubic rami, postoperative changes of the left total hip arthroplasty satisfactory appearance, large heterogeneous fluid collection in the left pelvic sidewall operative region likely representing hematoma -Orthopedics consulted, appreciate recommendations -Cardiology has opted to stop all anticoagulation in setting of hematoma Acute on chronic anemia -Hemoglobin on admission 7.5 -04/21 Hbg 6.8. Transfuse one unit of PRBCs -Check iron studies. Stool guaiac. She mentions she had colonscopy and EGD in [place] -Her stool is occasionally dark colored -GI has been consulted for further evaluation -GI recommends resumption of anticoagulation for atrial fibrillation -04/22 H/H 11/17.4 -04/21 iron 21, TIBC 271, ferritin 192 GERD, chronic -continue Protonix Asthma, chronic -History of asthma -Albuterol as needed DM, chronic -CC cardiac diet -Accu-Cheks AC at bedtime -SSI -Hypoglycemia protocol -04/20 hemoglobin A1c 5.6 Hypothyroidism, chronic -Resume home Synthroid -04/22 TSH 6.410, free T4 1.6 DVT prophylaxis -SCDs to bilateral lower extremities while in bed -Hold chemical anticoagulation in setting of anemia Hypokalemia, resolved -04/21 potassium 3.5 -Repleted -04/22 potassium 3.7 -Trend BMP -Intervene as needed History Interval history: This is a 64-year-old -[place] female with hypertension, A. fib on anticoagulation, diabetes, CHF, asthma, bronchitis, and hypothyroidism who presents to [facility] on 04/20 with complaints of bilateral lower extremity edema, palpitations, and shortness of breath worsening over the past 3 days. Cardiology, gastroenterology and orthopedic surgery was consulted. 04/21: Hemoglobin dropped to 6.8 this morning. Plan to transfuse 1 unit today, stool guaiac ordered-GI has been consulted. Patient complains of left hip pain- she recently had surgery on the left hip about 3 weeks prior to presentation 04/22: CT abdomen/pelvis which is concerning for hematoma, orthopedics has been consulted. Cardiology has opted to hold anticoagulation at this time. At the time my examination patient complains of new onset stutter however her NIH SS was 0. We will continue to monitor Hospitalist Physical - Constitutional Vitals: Temp Pulse Resp BP Pulse Ox 98.0 F 109 H 18 135/73 99 04/22/20 14:36 04/22/20 14:36 04/22/20 14:36 04/22/20 14:36 04/22/20 14:36 General appearance: Present: no acute distress, obese - EENT Eyes: Present: PERRL, EOM intact ENT: clear oral mucosa, dentition normal - Neck Neck: Present: normal ROM - Respiratory Respiratory effort: normal Respiratory: bilateral: CTA - Cardiovascular Rhythm: regular Heart Sounds: Present: S1 & S2. Absent: systolic murmur, diastolic murmur - Extremities Extremities: no ischemia, pulses intact, pulses symmetrical, No edema, normal temperature, normal color, Full ROM Peripheral Pulses: within normal limits - Abdominal General gastrointestinal: soft, non-tender, non-distended, normal bowel sounds - Integumentary Integumentary: Present: warm, dry - Psychiatric Psychiatric: appropriate mood/affect, cooperative, other (Complains of new onset stutter) - Neurologic Neurologic: CNII-XII intact, no focal deficits, moves all extremities - Allied Health Allied health notes reviewed: nursing, social work, case management Results - Labs CBC & Chem 7: 04/22/20 06:00 04/22/20 06:00 Labs: Laboratory Last Values WBC 7.0 K/mm3 (4.5-11.0) 04/22/20 06:00 RBC 2.75 M/mm3 (3.65-5.03) L 04/22/20 06:00 Hgb 8.0 gm/dl (10.1-14.3) L 04/22/20 06:00 Hct 25.4 % (30.3-42.9) L 04/22/20 06:00 MCV 92 fl (79-97) 04/22/20 06:00 MCH 29 pg (28-32) 04/22/20 06:00 MCHC 31 % (30-34) 04/22/20 06:00 RDW 23.6 % (13.2-15.2) H 04/22/20 06:00 Plt Count 242 K/mm3 (140-440) 04/22/20 06:00 Lymph % (Auto) 17.0 % (13.4-35.0) 04/21/20 05:58 [place] % (Auto) 12.4 % (0.0-7.3) H 04/21/20 05:58 Eos % (Auto) 2.1 % (0.0-4.3) 04/21/20 05:58 Baso % (Auto) 0.6 % (0.0-1.8) 04/21/20 05:58 Lymph # (Auto) 1.2 K/mm3 (1.2-5.4) 04/21/20 05:58 [place] # (Auto) 0.9 K/mm3 (0.0-0.8) H 04/21/20 05:58 Eos # (Auto) 0.1 K/mm3 (0.0-0.4) 04/21/20 05:58 Baso # (Auto) 0.0 K/mm3 (0.0-0.1) 04/21/20 05:58 Seg Neutrophils % 67.9 % (40.0-70.0) 04/21/20 05:58 Seg Neutrophils # 4.6 K/mm3 (1.8-7.7) 04/21/20 05:58 PT 13.2 Sec. (12.2-14.9) 04/19/20 22:19 INR 1.01 (0.87-1.13) 04/19/20 22:19 Sodium 142 mmol/L (137-145) 04/22/20 06:00 Potassium 3.7 mmol/L (3.6-5.0) 04/22/20 06:00 Chloride 102.8 mmol/L (98-107) 04/22/20 06:00 Carbon Dioxide 24 mmol/L (22-30) 04/22/20 06:00 Anion Gap 19 mmol/L 04/22/20 06:00 BUN 9 mg/dL (7-17) 04/22/20 06:00 Creatinine 0.5 mg/dL (0.6-1.2) L 04/22/20 06:00 Estimated GFR > 60 ml/min 04/22/20 06:00 BUN/Creatinine Ratio 18 % 04/22/20 06:00 Glucose 102 mg/dL (65-100) H 04/22/20 06:00 POC Glucose 85 mg/dL (70-105) 04/22/20 16:49 Hemoglobin A1c 5.1 % (4-6) 04/20/20 05:15 Calcium 8.2 mg/dL (8.4-10.2) L 04/22/20 06:00 Iron 21 ug/dL (37-170) L 04/21/20 08:55 TIBC 271 mcg/dL (250-450) 04/21/20 08:55 Ferritin 192.5 ng/mL (10.0-200.0) 04/21/20 08:55 Total Bilirubin 0.90 mg/dL (0.1-1.2) 04/19/20 22:19 AST 18 units/L (5-40) 04/19/20 22:19 ALT 13 units/L (7-56) 04/19/20 22:19 Alkaline Phosphatase 138 units/L (35-129) H 04/19/20 22:19 NT-Pro-B Natriuret Pep 476.3 pg/mL (0-900) 04/19/20 22:19 Total Protein 5.9 g/dL (6.3-8.2) L 04/19/20 22:19 Albumin 3.3 g/dL (3.9-5) L 04/19/20 22:19 Albumin/Globulin Ratio 1.3 % 04/19/20 22:19 TSH 6.410 mlU/mL (0.270-4.200) H 04/22/20 06:00 Free T4 1.61 ng/dL (0.76-1.46) H 04/22/20 06:00 Blood Type O NEGATIVE 04/21/20 08:26 Antibody Screen Negative 04/21/20 08:26 Crossmatch See Detail 04/21/20 08:26 Microbiology: Microbiology 04/20/20 05:15 Peripheral/Venous Blood Culture - Preliminary NO GROWTH AFTER 48 HOURS 04/20/20 06:10 Peripheral/Venous Blood Culture - Preliminary NO GROWTH AFTER 48 HOURS - Diagnostic Impressions Diagnostic Impressions: Echocardiogram 04/20/20 04:26 Transthoracic Echocardiogram Indication: A fib RVR; CHF-AE BP: 121/64 HR: 107 Conclusions *Technically difficult and limted study. *Grossly, global left ventricular wall motion and contractility are within normal limits. *The estimated ejection fraction is 55-60%. *Abnormal left ventricular diastolic filling is observed, consistent with impaired relaxation. *A pacemaker wire is visualized in the right ventricle. *There is evidence of mild pulmonary hypertension. *There is no pericardial effusion. Findings Left Ventricle: The left ventricular chamber size is normal. There is no left ventricular hypertrophy. Global left ventricular wall motion and contractility are within normal limits. Global left ventricular systolic function is normal. The estimated ejection fraction is 55-60%. Abnormal left ventricular diastolic filling is observed, consistent with impaired relaxation. Left Atrium: The left atrium is mildly dilated. Right Ventricle: The right ventricular cavity size is normal. The right ventricular global systolic function is normal. A pacemaker wire is visualized in the right ventricle. Aortic Valve: There is no evidence of aortic valve thickening. There is trace of aortic regurgitation. Mitral Valve: The mitral valve leaflets do not appear thickened. There is trace of mitral regurgitation. Tricuspid Valve: The tricuspid valve leaflets are normal. There is mild tricuspid regurgitation. The right ventricular systolic pressure is calculated at 45 mmHg. There is evidence of mild pulmonary hypertension. Pulmonic Valve: There is no evidence of pulmonic valve thickening. There is trace pulmonic regurgitation. Pericardium: There is no pericardial effusion. Aorta: The aorta appears normal. Venous: The inferior vena cava is not visualized. Measurements Chambers 2D Name Value Normal Range IVSd (2D) 1.11 cm (0.6 - 1.1) LVPWd (2D) 0.91 cm (0.6 - 1.1) LVIDd (2D) 3.91 cm (3.7 - 5.6) LVIDs (2D) 2.58 cm (2 - 3.8) LV FS (2D) 33.99 % - EF Teichholz (2D) 63.56 % - Ao root diameter (2D) 2.93 cm (2 - 3.7) Volumes/Mass Name Value Normal Range LA ESV SP 4CH (A/L) 80.85 ml - LA ESV SP 2CH (A/L) 70.84 ml - LA ESV BP (A/L) 78.34 ml - LA ESV BP (A/L) index 40.59 ml/m2 - LA ESV SP 4CH (MOD) 76.33 ml - LA ESV SP 2CH (MOD) 67.49 ml - LA ESV BP (MOD) 73.9 ml - LA ESV BP (MOD) index 38.29 ml/m2 - Diastolic/Systolic Function Name Value Normal Range MV E-wave Vmax 0.77 m/sec - MV deceleration time 207.26 msec - MV A-wave Vmax 0.67 m/sec - MV E:A ratio 1.15 ratio - Aortic Valve Name Value Normal Range AV Vmax 1.73 m/sec - AV VTI 29.62 cm - AV peak gradient 11.9 mmHg - AV mean gradient 6.35 mmHg - LVOT diameter 2.13 cm - LVOT Vmax 1.09 m/sec - LVOT VTI 21.25 cm - LVOT peak gradient 5.06 mmHg - LVOT mean gradient 2.74 mmHg - SV LVOT 75.59 ml - WILIAN (continuity Vmax) 2.24 cm2 - WILIAN (continuity VTI) 2.55 cm2 - AR PHT 492.62 msec - AR peak gradient 80.97 mmHg - Ascending Ao 3.25 cm - Tricuspid Valve Name Value Normal Range TR Vmax 3.06 m/sec - TR peak gradient 37 mmHg - RAP 8 mmHg - RVSP 45 mmHg - Pulmonic Valve/Qp:Qs Name Value Normal Range PV Vmax 1.37 m/sec - PV peak gradient 7.54 mmHg - NH end-diastolic Vmax 1.42 m/sec - PV acceleration time 91.34 msec - [place]/IV: Voiding Method Toilet IV Catheter Type [Right INT / Saline Lock Antecubital] IV Catheter Type [Right INT / Saline Lock External Jugular] Active Medications - Current Medications Current Medications: Generic Name Dose Route Start Last Admin Trade Name Freq PRN Reason Stop Dose Admin Acetaminophen 650 mg 04/20/20 04:28 Acetaminophen 325 Mg Tab PO Q4H PRN Pain MILD(1-3)/Fever >100.5/MULLINS Albuterol 2.5 mg 04/20/20 04:28 Albuterol 2.5 Mg/3 Ml Nebu IH Q3HRT PRN Shortness Of Breath Dextrose 0 ml 04/20/20 04:28 Dextrose 50% In Water (25gm) 50 Ml Syringe IV Q30MIN PRN Hypoglycemia Protocol Diltiazem HCl 60 mg 04/20/20 12:00 04/22/20 17:41 Diltiazem 60 Mg Tab PO 60 mg Q6HR WILLIE Administration Docusate Sodium 100 mg 04/20/20 10:00 04/22/20 09:42 Docusate Sodium 100 Mg Cap PO 100 mg BID WILLIE Administration Furosemide 40 mg 04/22/20 18:00 04/22/20 17:41 Furosemide 40 Mg/4 Ml Inj IV 40 mg 0600,1800 WILLIE Administration Insulin Human Lispro 0 unit 04/20/20 07:30 04/22/20 16:30 Insulin Lispro 100 Unit/Ml SUB-Q Not Given ACHS [facility] Protocol Morphine Sulfate 2 mg 04/20/20 04:26 Morphine 2 Mg/1 Ml Inj IV Q5MIN PRN Chest Pain unrelieved by NTG Nitroglycerin 0.4 mg 04/20/20 04:26 Nitroglycerin 0.4 Mg Tab Subl SL .Q5MIN PRN Chest Pain Ondansetron HCl 4 mg 04/20/20 04:28 Ondansetron 4 Mg/2 Ml Inj IV Q8H PRN Nausea And Vomiting Oxycodone/Acetaminophen 1 tab 04/20/20 04:28 04/22/20 06:16 Oxycodone /Acetaminophen 5-325mg Tab PO 1 tab Q6H PRN Administration Pain, Moderate (4-6) Pantoprazole Sodium 40 mg 04/22/20 10:00 04/22/20 09:42 Pantoprazole 40 Mg Tab PO 40 mg QDAC WILLIE Administration Potassium Chloride 10 meq 04/20/20 10:00 04/22/20 09:42 Potassium Chloride Er 10 Meq Tab PO 10 meq QDAY WILLIE Administration Sodium Chloride 10 ml 04/20/20 10:00 04/22/20 09:42 Sodium Chloride 0.9% 10 Ml Flush Syringe IV 10 ml BID WILLIE Administration Sodium Chloride 10 ml 04/20/20 04:28 Sodium Chloride 0.9% 10 Ml Flush Syringe IV PRN PRN LINE FLUSH
[2020-04-23] MEDS: dilTIAZem 60 MG TAB PO SCH ×4 (00:49→17:22)
[2020-04-23] MEDS: FUROSEMIDE 40 MG/4 ML INJ IV SCH ×2 (05:43→17:22)
[2020-04-23] MEDS: oxyCODONE /ACETAMINOPHEN 5-325MG TAB PO PRN ×2 (05:43→21:47)
[2020-04-23 05:56] LABS: BUN/Creatinine Ratio 13; Blood Urea Nitrogen 12 mg/dL (7-17); Calcium 7.9 mg/dL (8.4-10.2); Hemolysis Index 1
[2020-04-23 06:07] LABS: Hematocrit 21.4 % (30.3-42.9); Hemoglobin 7.1 gm/dl (10.1-14.3); Mean Corpuscular HGB Conc 33 % (30-34); Mean Corpuscular Volume 89 fl (79-97); Platelet Count 188 K/mm3 (140-440)
[2020-04-23 06:16] LABS: Red Cell Distribution Width 22.4 % (13.2-15.2)
[2020-04-23] MEDS: INSULIN LISPRO 100 UNIT/ML SUB-Q SCH ×4 (07:30→22:02)
[2020-04-23] MEDS ORDERED: SODIUM CHLORIDE 0.9% 500 ML 500 ML IV NR (08:15)
[2020-04-23] MEDS: PANTOPRAZOLE 40 MG TAB PO SCH (10:49)
[2020-04-23] MEDS: DOCUSATE SODIUM 100 MG CAP PO SCH ×2 (10:49→21:47)
[2020-04-23] MEDS: POTASSIUM CHLORIDE ER 10 MEQ TAB PO SCH (10:49)
--- NOTE | 2020-04-23 14:30 | Progress Note ---
Assessment and Plan Pt is feeling better today. H/H is noted to be decreased again. Pt reports hip surgery 3 weeks ago in [place], h/o anticoagulation with Eliquis. Pelvis CT noted - large fluid collection in left pelvic sidewall operative region likely representing a hematoma. Ortho consultation is pending. Cont present cardiac management. Cont to hold systemic AC pending ortho recs - per GI, ok to resume systemic AC. F/u CBC in AM. The patient has been seen in conjunction with Dr. Boy Vera who agrees with the assessment and plan of care. - Patient Problems (1) Paroxysmal atrial fibrillation with RVR Current Visit: Yes Status: Acute (2) Acute heart failure with preserved ejection fraction (HFpEF) Current Visit: Yes Status: Acute (3) Symptomatic anemia Current Visit: Yes Status: Acute (4) Cardiac pacemaker in situ Current Visit: Yes Status: Chronic (5) HTN (hypertension) Current Visit: Yes Status: Chronic (6) Diabetes Current Visit: Yes Status: Chronic Subjective Date of service: 04/23/20 Principal diagnosis: HF; anemia Interval history: pt resting in bed, feeling better. tele reviewed - in paroxysmal AFib, HR 90s. Objective Last Vital Signs Temp 98.4 F 04/23/20 13:09 Pulse 91 H 04/23/20 13:39 Resp 16 04/23/20 13:09 BP 100/56 04/23/20 13:39 Pulse Ox 98 04/23/20 13:39 - Physical Examination General: No Apparent Distress HEENT: Positive: PERRL, Normocephaly, Mucus Membranes Moist Neck: Positive: neck supple, trachea midline Cardiac: Positive: irregularly irregular, S1/S2 Lungs: Positive: Decreased Breath Sounds Neuro: Positive: Grossly Intact Abdomen: Negative: Tender Skin: Negative: Rash Musculoskeletal: No Pain Extremities: Present: +2 Edema (BLE) - Labs and Meds CBC 04/23/20 Range/Units 04:32 WBC 5.4 (4.5-11.0) K/mm3 RBC 2.40 L (3.65-5.03) M/mm3 Hgb 7.1 L (10.1-14.3) gm/dl Hct 21.4 L (30.3-42.9) % Plt Count 188 (140-440) K/mm3 Comprehensive Metabolic Panel 04/23/20 Range/Units 04:32 Sodium 138 (137-145) mmol/L Potassium 3.6 (3.6-5.0) mmol/L Chloride 100.3 (98-107) mmol/L Carbon Dioxide 28 (22-30) mmol/L BUN 12 (7-17) mg/dL Creatinine 0.9 D (0.6-1.2) mg/dL Glucose 111 H (65-100) mg/dL Calcium 7.9 L (8.4-10.2) mg/dL - Imaging and Cardiology EKG: report reviewed, image reviewed Echo: report reviewed ( EF 55-60%, impaired relaxation, pacemaker wire in RV, mild pulm HTN, RVSP 45mmHg. ) - EKG Sinus rhythms and dysrhythmias: sinus rhythm
--- NOTE | 2020-04-23 15:26 | Progress Note ---
<HENRYCM KenaArmando - Last Filed: 04/23/20 15:22> Assessment and Plan Assessment and plan: Atrial fibrillation with RVR, acute on chronic -Rate slightly controlled on p.o. Cardizem. -Cardiology evaluation appreciated -Holding eliquis due to anemia Acute on chronic diastolic CHF -Presented with a proBNP of 476 -IV Lasix twice daily -Potassium chloride 10 mEq daily -Cardiology recs appreciated -04/20 TTE shows gross global left ventricular wall motion and contractility are within normal limits, some ejection fraction 55 to 60%, impaired relaxation, pacemaker wire in the right ventricle, no pericardial effusion with evidence of mild pulmonary hypertension -Strict intake and output -Daily weights Left hip hematoma -Had hip replacement about 3 weeks ago and has not had a follow up appointment -04/16 CT left hip -04/21 CT pelvis without contrast shows chronic healing phase fracture deformities involving the left inferior and superior pubic rami, postoperative changes of the left total hip arthroplasty satisfactory appearance, large heterogeneous fluid collection in the left pelvic sidewall operative region like ly representing hematoma -Orthopedics consulted, appreciate recommendations -Cardiology has opted to stop all anticoagulation in setting of hematoma Acute on chronic anemia -Hemoglobin on admission 7.5 -04/21 Hbg 6.8. Transfuse one unit of PRBCs -04/21 stool guaiac pending; she had colonscopy and EGD in ID -Her stool is occasionally dark colored -GI has been consulted for further evaluation -GI recommended resumption of anticoagulation for atrial fibrillation as the patient did not have any noted GI sources of anemia and her anemia resolved with a transfusion of 1 unit PRBC -04/22 H/H 11/17.4 -04/21 iron 21, TIBC 271, ferritin 192 -04/23 H/H 7.1/24.1 -Transfuse 1 unit PRBC -Trend CBC GERD, chronic -continue Protonix Asthma, chronic -History of asthma -Albuterol as needed DM, chronic -CC cardiac diet -Accu-Cheks AC at bedtime -SSI -Hypoglycemia protocol -04/20 hemoglobin A1c 5.6 Hypothyroidism, chronic -Resume home Synthroid -04/22 TSH 6.410, free T4 1.6 DVT prophylaxis -SCDs to bilateral lower extremities while in bed -Hold chemical anticoagulation in setting of anemia Hypokalemia, resolved -04/21 potassium 3.5 -Repleted -04/22 potassium 3.7 -Trend BMP -Intervene as needed History Interval history: This is a 64-year-old -Congolese female with hypertension, A. fib on anticoagulation, diabetes, CHF, asthma, bronchitis, and hypothyroidism who presents to [facility] on 04/20 with complaints of bilateral lower extremity edema, palpitations, and shortness of breath worsening over the past 3 days. Cardiology, gastroenterology and orthopedic surgery was consulted. 04/21: Hemoglobin dropped to 6.8 this morning. Plan to transfuse 1 unit today, stool guaiac ordered-GI has been consulted. Patient complains of left hip pain- she recently had surgery on the left hip about 3 weeks prior to presentation 04/22: CT abdomen/pelvis which is concerning for hematoma, orthopedics has been consulted. Cardiology has opted to hold anticoagulation at this time. At the time my examination patient complains of new onset stutter however her NIH SS was 0. 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 Patient's H/H noted to be 7.1/21.4 therefore she was transfused with 1 unit PRBC . Orthopedics consult is still pending. We will await restarting her systemic anticoagulation until orthopedic evaluations completed. Hospitalist Physical - Constitutional Vitals: Temp Pulse Resp BP Pulse Ox 98.4 F 91 H 16 100/56 98 04/23/20 13:09 04/23/20 13:39 04/23/20 13:09 04/23/20 13:39 04/23/20 13:39 General appearance: Present: no acute distress, obese - EENT Eyes: Present: PERRL, EOM intact ENT: hearing intact, poor dentition - Neck Neck: Present: supple, normal ROM - Respiratory Respiratory effort: normal Respiratory: bilateral: CTA - Cardiovascular Rhythm: regular Heart Sounds: Present: S1 & S2. Absent: systolic murmur, diastolic murmur - Extremities Extremities: no ischemia, pulses intact, pulses symmetrical, No edema, normal temperature, normal color, Full ROM Peripheral Pulses: within normal limits - Abdominal General gastrointestinal: soft, non-tender, non-distended, normal bowel sounds - Integumentary Integumentary: Present: clear, warm, dry - Psychiatric Psychiatric: appropriate mood/affect, cooperative - Neurologic Neurologic: CNII-XII intact, no focal deficits, moves all extremities - Allied Health Allied health notes reviewed: nursing Results - Labs CBC & Chem 7: 04/23/20 04:32 04/23/20 04:32 Labs: Laboratory Last Values WBC 5.4 K/mm3 (4.5-11.0) 04/23/20 04:32 RBC 2.40 M/mm3 (3.65-5.03) L 04/23/20 04:32 Hgb 7.1 gm/dl (10.1-14.3) L 04/23/20 04:32 Hct 21.4 % (30.3-42.9) L 04/23/20 04:32 MCV 89 fl (79-97) 04/23/20 04:32 MCH 30 pg (28-32) 04/23/20 04:32 MCHC 33 % (30-34) 04/23/20 04:32 RDW 22.4 % (13.2-15.2) H 04/23/20 04:32 Plt Count 188 K/mm3 (140-440) 04/23/20 04:32 Lymph % (Auto) 17.0 % (13.4-35.0) 04/21/20 05:58 [place] % (Auto) 12.4 % (0.0-7.3) H 04/21/20 05:58 Eos % (Auto) 2.1 % (0.0-4.3) 04/21/20 05:58 Baso % (Auto) 0.6 % (0.0-1.8) 04/21/20 05:58 Lymph # (Auto) 1.2 K/mm3 (1.2-5.4) 04/21/20 05:58 [place] # (Auto) 0.9 K/mm3 (0.0-0.8) H 04/21/20 05:58 Eos # (Auto) 0.1 K/mm3 (0.0-0.4) 04/21/20 05:58 Baso # (Auto) 0.0 K/mm3 (0.0-0.1) 04/21/20 05:58 Seg Neutrophils % 67.9 % (40.0-70.0) 04/21/20 05:58 Seg Neutrophils # 4.6 K/mm3 (1.8-7.7) 04/21/20 05:58 PT 13.2 Sec. (12.2-14.9) 04/19/20 22:19 INR 1.01 (0.87-1.13) 04/19/20 22:19 Sodium 138 mmol/L (137-145) 04/23/20 04:32 Potassium 3.6 mmol/L (3.6-5.0) 04/23/20 04:32 Chloride 100.3 mmol/L (98-107) 04/23/20 04:32 Carbon Dioxide 28 mmol/L (22-30) 04/23/20 04:32 Anion Gap 13 mmol/L 04/23/20 04:32 BUN 12 mg/dL (7-17) 04/23/20 04:32 Creatinine 0.9 mg/dL (0.6-1.2) D 04/23/20 04:32 Estimated GFR > 60 ml/min 04/23/20 04:32 BUN/Creatinine Ratio 13 % 04/23/20 04:32 Glucose 111 mg/dL (65-100) H 04/23/20 04:32 POC Glucose 78 mg/dL (70-105) 04/22/20 20:45 Hemoglobin A1c 5.1 % (4-6) 04/20/20 05:15 Calcium 7.9 mg/dL (8.4-10.2) L 04/23/20 04:32 Iron 21 ug/dL (37-170) L 04/21/20 08:55 TIBC 271 mcg/dL (250-450) 04/21/20 08:55 Ferritin 192.5 ng/mL (10.0-200.0) 04/21/20 08:55 Total Bilirubin 0.90 mg/dL (0.1-1.2) 04/19/20 22:19 AST 18 units/L (5-40) 04/19/20 22:19 ALT 13 units/L (7-56) 04/19/20 22:19 Alkaline Phosphatase 138 units/L (35-129) H 04/19/20 22:19 NT-Pro-B Natriuret Pep 476.3 pg/mL (0-900) 04/19/20 22:19 Total Protein 5.9 g/dL (6.3-8.2) L 04/19/20 22:19 Albumin 3.3 g/dL (3.9-5) L 04/19/20 22:19 Albumin/Globulin Ratio 1.3 % 04/19/20 22:19 TSH 6.410 mlU/mL (0.270-4.200) H 04/22/20 06:00 Free T4 1.61 ng/dL (0.76-1.46) H 04/22/20 06:00 Blood Type O NEGATIVE 04/21/20 08:26 Antibody Screen Negative 04/21/20 08:26 Crossmatch See Detail 04/21/20 08:26 Microbiology: Microbiology 04/20/20 05:15 Peripheral/Venous Blood Culture - Preliminary NO GROWTH AFTER 72 HOURS 04/20/20 06:10 Peripheral/Venous Blood Culture - Preliminary NO GROWTH AFTER 72 HOURS - Diagnostic Impressions Diagnostic Impressions: Echocardiogram 04/20/20 04:26 Transthoracic Echocardiogram Indication: A fib RVR; CHF-AE BP: 121/64 HR: 107 Conclusions *Technically difficult and limted study. *Grossly, global left ventricular wall motion and contractility are within normal limits. *The estimated ejection fraction is 55-60%. *Abnormal left ventricular diastolic filling is observed, consistent with impaired relaxation. *A pacemaker wire is visualized in the right ventricle. *There is evidence of mild pulmonary hypertension. *There is no pericardial effusion. Findings Left Ventricle: The left ventricular chamber size is normal. There is no left ventricular hypertrophy. Global left ventricular wall motion and contractility are within normal limits. Global left ventricular systolic function is normal. The estimated ejection fraction is 55-60%. Abnormal left ventricular diastolic filling is observed, consistent with impaired relaxation. Left Atrium: The left atrium is mildly dilated. Right Ventricle: The right ventricular cavity size is normal. The right ventricular global systolic function is normal. A pacemaker wire is visualized in the right ventricle. Aortic Valve: There is no evidence of aortic valve thickening. There is trace of aortic regurgitation. Mitral Valve: The mitral valve leaflets do not appear thickened. There is trace of mitral regurgitation. Tricuspid Valve: The tricuspid valve leaflets are normal. There is mild tricuspid regurgitation. The right ventricular systolic pressure is calculated at 45 mmHg. There is evidence of mild pulmonary hypertension. Pulmonic Valve: There is no evidence of pulmonic valve thickening. There is trace pulmonic regurgitation. Pericardium: There is no pericardial effusion. Aorta: The aorta appears normal. Venous: The inferior vena cava is not visualized. Measurements Chambers 2D Name Value Normal Range IVSd (2D) 1.11 cm (0.6 - 1.1) LVPWd (2D) 0.91 cm (0.6 - 1.1) LVIDd (2D) 3.91 cm (3.7 - 5.6) LVIDs (2D) 2.58 cm (2 - 3.8) LV FS (2D) 33.99 % - EF Teichholz (2D) 63.56 % - Ao root diameter (2D) 2.93 cm (2 - 3.7) Volumes/Mass Name Value Normal Range LA ESV SP 4CH (A/L) 80.85 ml - LA ESV SP 2CH (A/L) 70.84 ml - LA ESV BP (A/L) 78.34 ml - LA ESV BP (A/L) index 40.59 ml/m2 - LA ESV SP 4CH (MOD) 76.33 ml - LA ESV SP 2CH (MOD) 67.49 ml - LA ESV BP (MOD) 73.9 ml - LA ESV BP (MOD) index 38.29 ml/m2 - Diastolic/Systolic Function Name Value Normal Range MV E-wave Vmax 0.77 m/sec - MV deceleration time 207.26 msec - MV A-wave Vmax 0.67 m/sec - MV E:A ratio 1.15 ratio - Aortic Valve Name Value Normal Range AV Vmax 1.73 m/sec - AV VTI 29.62 cm - AV peak gradient 11.9 mmHg - AV mean gradient 6.35 mmHg - LVOT diameter 2.13 cm - LVOT Vmax 1.09 m/sec - LVOT VTI 21.25 cm - LVOT peak gradient 5.06 mmHg - LVOT mean gradient 2.74 mmHg - SV LVOT 75.59 ml - WILIAN (continuity Vmax) 2.24 cm2 - WILIAN (continuity VTI) 2.55 cm2 - AR PHT 492.62 msec - AR peak gradient 80.97 mmHg - Ascending Ao 3.25 cm - Tricuspid Valve Name Value Normal Range TR Vmax 3.06 m/sec - TR peak gradient 37 mmHg - RAP 8 mmHg - RVSP 45 mmHg - Pulmonic Valve/Qp:Qs Name Value Normal Range PV Vmax 1.37 m/sec - PV peak gradient 7.54 mmHg - GA end-diastolic Vmax 1.42 m/sec - PV acceleration time 91.34 msec - Hamlin/IV: Voiding Method Toilet IV Catheter Type [Right INT / Saline Lock Antecubital] IV Catheter Type [Right INT / Saline Lock External Jugular] Active Medications - Current Medications Current Medications: Generic Name Dose Route Start Last Admin Trade Name Freq PRN Reason Stop Dose Admin Acetaminophen 650 mg 04/20/20 04:28 Acetaminophen 325 Mg Tab PO Q4H PRN Pain MILD(1-3)/Fever >100.5/MULLINS Albuterol 2.5 mg 04/20/20 04:28 Albuterol 2.5 Mg/3 Ml Nebu IH Q3HRT PRN Shortness Of Breath Dextrose 0 ml 04/20/20 04:28 Dextrose 50% In Water (25gm) 50 Ml Syringe IV Q30MIN PRN Hypoglycemia Protocol Diltiazem HCl 60 mg 04/20/20 12:00 04/23/20 05:43 Diltiazem 60 Mg Tab PO 60 mg Q6HR WILLIE Administration Docusate Sodium 100 mg 04/20/20 10:00 04/23/20 10:49 Docusate Sodium 100 Mg Cap PO 100 mg BID WILLIE Administration Furosemide 40 mg 04/22/20 18:00 04/23/20 05:43 Furosemide 40 Mg/4 Ml Inj IV 40 mg 0600,1800 WILLIE Administration Sodium Chloride 500 mls @ 0 mls/hr 04/23/20 08:15 04/23/20 10:50 Nacl 0.9% 500 Ml IV 04/23/20 23:00 50 mls/hr ONCE NR Administration As Directed Insulin Human Lispro 0 unit 04/20/20 07:30 04/22/20 21:29 Insulin Lispro 100 Unit/Ml SUB-Q Not Given ACHS WILLIE Protocol Morphine Sulfate 2 mg 04/20/20 04:26 Morphine 2 Mg/1 Ml Inj IV Q5MIN PRN Chest Pain unrelieved by NTG Nitroglycerin 0.4 mg 04/20/20 04:26 Nitroglycerin 0.4 Mg Tab Subl SL .Q5MIN PRN Chest Pain Ondansetron HCl 4 mg 04/20/20 04:28 Ondansetron 4 Mg/2 Ml Inj IV Q8H PRN Nausea And Vomiting Oxycodone/Acetaminophen 1 tab 04/20/20 04:28 04/23/20 05:43 Oxycodone /Acetaminophen 5-325mg Tab PO 1 tab Q6H PRN Administration Pain, Moderate (4-6) Pantoprazole Sodium 40 mg 04/22/20 10:00 04/23/20 10:49 Pantoprazole 40 Mg Tab PO 40 mg QDAC WILLIE Administration Potassium Chloride 10 meq 04/20/20 10:00 04/23/20 10:49 Potassium Chloride Er 10 Meq Tab PO 10 meq QDAY WILLIE Administration Sodium Chloride 10 ml 04/20/20 10:00 04/23/20 10:49 Sodium Chloride 0.9% 10 Ml Flush Syringe IV 10 ml BID WILLIE Administration Sodium Chloride 10 ml 04/20/20 04:28 Sodium Chloride 0.9% 10 Ml Flush Syringe IV PRN PRN LINE FLUSH <JEZ ARRIAGA - Last Filed: 04/23/20 16:52> Assessment and Plan Assessment and plan: I agree with history, examination and assessment and plan as written by Cm Kendrick NP. Hospitalist Physical - Constitutional Vitals: Temp Pulse Resp BP Pulse Ox 98.4 F 91 H 16 100/56 98 04/23/20 13:09 04/23/20 13:39 04/23/20 13:09 04/23/20 13:39 04/23/20 13:39 Results - Labs CBC & Chem 7: 04/23/20 04:32 04/23/20 04:32 Labs: Laboratory Last Values WBC 5.4 K/mm3 (4.5-11.0) 04/23/20 04:32 RBC 2.40 M/mm3 (3.65-5.03) L 04/23/20 04:32 Hgb 7.1 gm/dl (10.1-14.3) L 04/23/20 04:32 Hct 21.4 % (30.3-42.9) L 04/23/20 04:32 MCV 89 fl (79-97) 04/23/20 04:32 MCH 30 pg (28-32) 04/23/20 04:32 MCHC 33 % (30-34) 04/23/20 04:32 RDW 22.4 % (13.2-15.2) H 04/23/20 04:32 Plt Count 188 K/mm3 (140-440) 04/23/20 04:32 Lymph % (Auto) 17.0 % (13.4-35.0) 04/21/20 05:58 [place] % (Auto) 12.4 % (0.0-7.3) H 04/21/20 05:58 Eos % (Auto) 2.1 % (0.0-4.3) 04/21/20 05:58 Baso % (Auto) 0.6 % (0.0-1.8) 04/21/20 05:58 Lymph # (Auto) 1.2 K/mm3 (1.2-5.4) 04/21/20 05:58 [place] # (Auto) 0.9 K/mm3 (0.0-0.8) H 04/21/20 05:58 Eos # (Auto) 0.1 K/mm3 (0.0-0.4) 04/21/20 05:58 Baso # (Auto) 0.0 K/mm3 (0.0-0.1) 04/21/20 05:58 Seg Neutrophils % 67.9 % (40.0-70.0) 04/21/20 05:58 Seg Neutrophils # 4.6 K/mm3 (1.8-7.7) 04/21/20 05:58 PT 13.2 Sec. (12.2-14.9) 04/19/20 22:19 INR 1.01 (0.87-1.13) 04/19/20 22:19 Sodium 138 mmol/L (137-145) 04/23/20 04:32 Potassium 3.6 mmol/L (3.6-5.0) 04/23/20 04:32 Chloride 100.3 mmol/L (98-107) 04/23/20 04:32 Carbon Dioxide 28 mmol/L (22-30) 04/23/20 04:32 Anion Gap 13 mmol/L 04/23/20 04:32 BUN 12 mg/dL (7-17) 04/23/20 04:32 Creatinine 0.9 mg/dL (0.6-1.2) D 04/23/20 04:32 Estimated GFR > 60 ml/min 04/23/20 04:32 BUN/Creatinine Ratio 13 % 04/23/20 04:32 Glucose 111 mg/dL (65-100) H 04/23/20 04:32 POC Glucose 78 mg/dL (70-105) 04/22/20 20:45 Hemoglobin A1c 5.1 % (4-6) 04/20/20 05:15 Calcium 7.9 mg/dL (8.4-10.2) L 04/23/20 04:32 Iron 21 ug/dL (37-170) L 04/21/20 08:55 TIBC 271 mcg/dL (250-450) 04/21/20 08:55 Ferritin 192.5 ng/mL (10.0-200.0) 04/21/20 08:55 Total Bilirubin 0.90 mg/dL (0.1-1.2) 04/19/20 22:19 AST 18 units/L (5-40) 04/19/20 22:19 ALT 13 units/L (7-56) 04/19/20 22:19 Alkaline Phosphatase 138 units/L (35-129) H 04/19/20 22:19 NT-Pro-B Natriuret Pep 476.3 pg/mL (0-900) 04/19/20 22:19 Total Protein 5.9 g/dL (6.3-8.2) L 04/19/20 22:19 Albumin 3.3 g/dL (3.9-5) L 04/19/20 22:19 Albumin/Globulin Ratio 1.3 % 04/19/20 22:19 TSH 6.410 mlU/mL (0.270-4.200) H 04/22/20 06:00 Free T4 1.61 ng/dL (0.76-1.46) H 04/22/20 06:00 Blood Type O NEGATIVE 04/21/20 08:26 Antibody Screen Negative 04/21/20 08:26 Crossmatch See Detail 04/21/20 08:26 Microbiology: Microbiology 04/20/20 05:15 Peripheral/Venous Blood Culture - Preliminary NO GROWTH AFTER 72 HOURS 04/20/20 06:10 Peripheral/Venous Blood Culture - Preliminary NO GROWTH AFTER 72 HOURS - Diagnostic Impressions Diagnostic Impressions: Echocardiogram 04/20/20 04:26 Transthoracic Echocardiogram Indication: A fib RVR; CHF-AE BP: 121/64 HR: 107 Conclusions *Technically difficult and limted study. *Grossly, global left ventricular wall motion and contractility are within normal limits. *The estimated ejection fraction is 55-60%. *Abnormal left ventricular diastolic filling is observed, consistent with impaired relaxation. *A pacemaker wire is visualized in the right ventricle. *There is evidence of mild pulmonary hypertension. *There is no pericardial effusion. Findings Left Ventricle: The left ventricular chamber size is normal. There is no left ventricular hypertrophy. Global left ventricular wall motion and contractility are within normal limits. Global left ventricular systolic function is normal. The estimated ejection fraction is 55-60%. Abnormal left ventricular diastolic filling is observed, consistent with impaired relaxation. Left Atrium: The left atrium is mildly dilated. Right Ventricle: The right ventricular cavity size is normal. The right ventricular global systolic function is normal. A pacemaker wire is visualized in the right ventricle. Aortic Valve: There is no evidence of aortic valve thickening. There is trace of aortic regurgitation. Mitral Valve: The mitral valve leaflets do not appear thickened. There is trace of mitral regurgitation. Tricuspid Valve: The tricuspid valve leaflets are normal. There is mild tricuspid regurgitation. The right ventricular systolic pressure is calculated at 45 mmHg. There is evidence of mild pulmonary hypertension. Pulmonic Valve: There is no evidence of pulmonic valve thickening. There is trace pulmonic regurgitation. Pericardium: There is no pericardial effusion. Aorta: The aorta appears normal. Venous: The inferior vena cava is not visualized. Measurements Chambers 2D Name Value Normal Range IVSd (2D) 1.11 cm (0.6 - 1.1) LVPWd (2D) 0.91 cm (0.6 - 1.1) LVIDd (2D) 3.91 cm (3.7 - 5.6) LVIDs (2D) 2.58 cm (2 - 3.8) LV FS (2D) 33.99 % - EF Teichholz (2D) 63.56 % - Ao root diameter (2D) 2.93 cm (2 - 3.7) Volumes/Mass Name Value Normal Range LA ESV SP 4CH (A/L) 80.85 ml - LA ESV SP 2CH (A/L) 70.84 ml - LA ESV BP (A/L) 78.34 ml - LA ESV BP (A/L) index 40.59 ml/m2 - LA ESV SP 4CH (MOD) 76.33 ml - LA ESV SP 2CH (MOD) 67.49 ml - LA ESV BP (MOD) 73.9 ml - LA ESV BP (MOD) index 38.29 ml/m2 - Diastolic/Systolic Function Name Value Normal Range MV E-wave Vmax 0.77 m/sec - MV deceleration time 207.26 msec - MV A-wave Vmax 0.67 m/sec - MV E:A ratio 1.15 ratio - Aortic Valve Name Value Normal Range AV Vmax 1.73 m/sec - AV VTI 29.62 cm - AV peak gradient 11.9 mmHg - AV mean gradient 6.35 mmHg - LVOT diameter 2.13 cm - LVOT Vmax 1.09 m/sec - LVOT VTI 21.25 cm - LVOT peak gradient 5.06 mmHg - LVOT mean gradient 2.74 mmHg - SV LVOT 75.59 ml - WLIIAN (continuity Vmax) 2.24 cm2 - WILIAN (continuity VTI) 2.55 cm2 - AR PHT 492.62 msec - AR peak gradient 80.97 mmHg - Ascending Ao 3.25 cm - Tricuspid Valve Name Value Normal Range TR Vmax 3.06 m/sec - TR peak gradient 37 mmHg - RAP 8 mmHg - RVSP 45 mmHg - Pulmonic Valve/Qp:Qs Name Value Normal Range PV Vmax 1.37 m/sec - PV peak gradient 7.54 mmHg - GA end-diastolic Vmax 1.42 m/sec - PV acceleration time 91.34 msec - Hamlin/IV: Voiding Method Toilet IV Catheter Type [Right INT / Saline Lock Antecubital] IV Catheter Type [Right INT / Saline Lock External Jugular] Active Medications - Current Medications Current Medications: Generic Name Dose Route Start Last Admin Trade Name Freq PRN Reason Stop Dose Admin Acetaminophen 650 mg 04/20/20 04:28 Acetaminophen 325 Mg Tab PO Q4H PRN Pain MILD(1-3)/Fever >100.5/MULLINS Albuterol 2.5 mg 04/20/20 04:28 Albuterol 2.5 Mg/3 Ml Nebu IH Q3HRT PRN Shortness Of Breath Dextrose 0 ml 04/20/20 04:28 Dextrose 50% In Water (25gm) 50 Ml Syringe IV Q30MIN PRN Hypoglycemia Protocol Diltiazem HCl 60 mg 04/20/20 12:00 04/23/20 05:43 Diltiazem 60 Mg Tab PO 60 mg Q6HR WILLIE Administration Docusate Sodium 100 mg 04/20/20 10:00 04/23/20 10:49 Docusate Sodium 100 Mg Cap PO 100 mg BID WILLIE Administration Furosemide 40 mg 04/22/20 18:00 04/23/20 05:43 Furosemide 40 Mg/4 Ml Inj IV 40 mg 0600,1800 WILLIE Administration Sodium Chloride 500 mls @ 0 mls/hr 04/23/20 08:15 04/23/20 10:50 Nacl 0.9% 500 Ml IV 04/23/20 23:00 50 mls/hr ONCE NR Administration As Directed Insulin Human Lispro 0 unit 04/20/20 07:30 04/22/20 21:29 Insulin Lispro 100 Unit/Ml SUB-Q Not Given ACHS [facility] Protocol Morphine Sulfate 2 mg 04/20/20 04:26 Morphine 2 Mg/1 Ml Inj IV Q5MIN PRN Chest Pain unrelieved by NTG Nitroglycerin 0.4 mg 04/20/20 04:26 Nitroglycerin 0.4 Mg Tab Subl SL .Q5MIN PRN Chest Pain Ondansetron HCl 4 mg 04/20/20 04:28 Ondansetron 4 Mg/2 Ml Inj IV Q8H PRN Nausea And Vomiting Oxycodone/Acetaminophen 1 tab 04/20/20 04:28 04/23/20 05:43 Oxycodone /Acetaminophen 5-325mg Tab PO 1 tab Q6H PRN Administration Pain, Moderate (4-6) Pantoprazole Sodium 40 mg 04/22/20 10:00 04/23/20 10:49 Pantoprazole 40 Mg Tab PO 40 mg QDAC WILLIE Administration Potassium Chloride 10 meq 04/20/20 10:00 04/23/20 10:49 Potassium Chloride Er 10 Meq Tab PO 10 meq QDAY WILLIE Administration Sodium Chloride 10 ml 04/20/20 10:00 04/23/20 10:49 Sodium Chloride 0.9% 10 Ml Flush Syringe IV 10 ml BID WILLIE Administration Sodium Chloride 10 ml 04/20/20 04:28 Sodium Chloride 0.9% 10 Ml Flush Syringe IV PRN PRN LINE FLUSH
--- NOTE | 2020-04-23 18:28 | Progress Note ---
Assessment and Plan 1. Iron deficiency anemia - long-standing, based on pt history. Hgb dropped today to 7.1. No clear evidence of GI bleed, and pt probably has been evaluated in the past, but her confusion today causes suspicion. One factor for her anemia is the post-op hematoma noted on CT. - check stool for occult blood - continue daily PPI - transfuse as needed - give IV iron if available - get records - would resume anticoagulation for now, as pt has been on it. - if unable to confirm prior evaluation, and has blood in stool, would do EGD/Colon Subjective Date of service: 04/23/20 Principal diagnosis: HF; anemia Interval history: Pt denies complaints. Answers inappropriate. Per RN, tried to go to [facility] to buy a conveyor line battery charger for her phone. Today, she tells me she did not call family regarding getting old records, and then stated phone did not work, and when shown bedside phone, made other excuses, and when pressed, got angry. States she had a small greenish stool, placed by toilet, but none present. Objective - Constitutional Vitals: Vital Signs - 12hr 04/23/20 04/23/20 04/23/20 13:00 13:09 13:39 Temperature 99.1 F 98.4 F Pulse Rate 84 94 H 91 H Respiratory 16 16 Rate Blood Pressure 108/58 108/67 100/56 O2 Sat by Pulse 97 100 98 Oximetry 04/23/20 16:40 Temperature 99.3 F Pulse Rate 90 Respiratory 16 Rate Blood Pressure 98/63 O2 Sat by Pulse 98 Oximetry General appearance: Present: no acute distress - EENT Eyes: PERRL, EOM intact ENT: hearing intact - Respiratory Respiratory effort: normal - Gastrointestinal General gastrointestinal: Present: soft, non-tender - Labs CBC & Chem 7: 04/23/20 04:32 04/23/20 04:32 Labs: Abnormal lab results 04/21/20 04/23/20 04/23/20 Range/Units 08:26 04:32 04:32 RBC 2.40 L (3.65-5.03) M/mm3 Hgb 7.1 L (10.1-14.3) gm/dl Hct 21.4 L (30.3-42.9) % RDW 22.4 H (13.2-15.2) % Glucose 111 H (65-100) mg/dL Calcium 7.9 L (8.4-10.2) mg/dL Crossmatch See Detail Medications & Allergies - Medications Allergies/Adverse Reactions: Allergies ranitidine [From Zantac] Allergy (Verified 04/19/20 21:10) Unknown Home Medications: Home Medications Medication Instructions Recorded Confirmed Last Taken Type Apixaban [Eliquis] 5 mg PO DAILY #30 tablet 04/22/20 Unknown Rx Hydroxyzine HCl [hydrOXYzine] 50 mg PO HS 04/22/20 04/22/20 Unknown History Oxycodone HCl/Acetaminophen 1 each PO Q6HR PRN #30 tablet 04/22/20 Unknown Rx [Percocet 10/325 mg] Pregabalin 150 mg PO DAILY 04/22/20 04/22/20 Unknown History amLODIPine [Norvasc] 5 mg PO DAILY 04/22/20 04/22/20 Unknown History Active Medications: Generic Name Dose Route Start Last Admin Trade Name Freq PRN Reason Stop Dose Admin Acetaminophen 650 mg 04/20/20 04:28 Acetaminophen 325 Mg Tab PO Q4H PRN Pain MILD(1-3)/Fever >100.5/MULLINS Albuterol 2.5 mg 04/20/20 04:28 Albuterol 2.5 Mg/3 Ml Nebu IH Q3HRT PRN Shortness Of Breath Dextrose 0 ml 04/20/20 04:28 Dextrose 50% In Water (25gm) 50 Ml Syringe IV Q30MIN PRN Hypoglycemia Protocol Diltiazem HCl 60 mg 04/20/20 12:00 04/23/20 17:22 Diltiazem 60 Mg Tab PO 60 mg Q6HR WILLIE Administration Docusate Sodium 100 mg 04/20/20 10:00 04/23/20 10:49 Docusate Sodium 100 Mg Cap PO 100 mg BID WILLIE Administration Furosemide 40 mg 04/22/20 18:00 04/23/20 17:22 Furosemide 40 Mg/4 Ml Inj IV 40 mg 0600,1800 WILLIE Administration Sodium Chloride 500 mls @ 0 mls/hr 04/23/20 08:15 04/23/20 10:50 Nacl 0.9% 500 Ml IV 04/23/20 23:00 50 mls/hr ONCE NR Administration As Directed Insulin Human Lispro 0 unit 04/20/20 07:30 04/23/20 18:01 Insulin Lispro 100 Unit/Ml SUB-Q Not Given ACHS WILLIE Protocol Morphine Sulfate 2 mg 04/20/20 04:26 Morphine 2 Mg/1 Ml Inj IV Q5MIN PRN Chest Pain unrelieved by NTG Nitroglycerin 0.4 mg 04/20/20 04:26 Nitroglycerin 0.4 Mg Tab Subl SL .Q5MIN PRN Chest Pain Ondansetron HCl 4 mg 04/20/20 04:28 Ondansetron 4 Mg/2 Ml Inj IV Q8H PRN Nausea And Vomiting Oxycodone/Acetaminophen 1 tab 04/20/20 04:28 04/23/20 05:43 Oxycodone /Acetaminophen 5-325mg Tab PO 1 tab Q6H PRN Administration Pain, Moderate (4-6) Pantoprazole Sodium 40 mg 04/22/20 10:00 04/23/20 10:49 Pantoprazole 40 Mg Tab PO 40 mg QDAC WILLIE Administration Potassium Chloride 10 meq 04/20/20 10:00 04/23/20 10:49 Potassium Chloride Er 10 Meq Tab PO 10 meq QDAY WILLIE Administration Sodium Chloride 10 ml 04/20/20 10:00 04/23/20 10:49 Sodium Chloride 0.9% 10 Ml Flush Syringe IV 10 ml BID WILLIE Administration Sodium Chloride 10 ml 04/20/20 04:28 Sodium Chloride 0.9% 10 Ml Flush Syringe IV PRN PRN LINE FLUSH
[2020-04-24 05:37] LABS: Hematocrit 26.8 % (30.3-42.9); Hemoglobin 8.8 gm/dl (10.1-14.3); Mean Corpuscular HGB Conc 33 % (30-34); Mean Corpuscular Volume 89 fl (79-97); Platelet Count 186 K/mm3 (140-440); Red Blood Count 3.02 M/mm3 (3.65-5.03)
[2020-04-24 05:53] LABS: BUN/Creatinine Ratio 20; Blood Urea Nitrogen 12 mg/dL (7-17); Calcium 7.9 mg/dL (8.4-10.2); Hemolysis Index 9
[2020-04-24 06:11] LABS: Red Cell Distribution Width 20.7 % (13.2-15.2)
[2020-04-24] MEDS: FUROSEMIDE 40 MG/4 ML INJ IV SCH ×2 (07:00→17:14)
[2020-04-24] MEDS: dilTIAZem 60 MG TAB PO SCH ×3 (07:32→12:24)
[2020-04-24] MEDS: INSULIN LISPRO 100 UNIT/ML SUB-Q SCH ×4 (08:21→21:38)
--- NOTE | 2020-04-24 10:03 | Progress Note ---
Assessment and Plan Assessment and plan: This is a 64-year-old -[place] female with hypertension, A. fib on anticoagulation, diabetes, CHF, asthma, bronchitis, and hypothyroidism who presents to [facility] on 04/20 with complaints of bilateral lower extremity edema, palpitations, and shortness of breath worsening over the past 3 days. Cardio logy, gastroenterology and orthopedic surgery was consulted. 04/21: Hemoglobin dropped to 6.8 this morning. Plan to transfuse 1 unit today, stool guaiac ordered-GI has been consulted. Patient complains of left hip pain- she recently had surgery on the left hip about 3 weeks prior to presentation 04/22: CT abdomen/pelvis which is concerning for hematoma, orthopedics has been consulted. Cardiology has opted to hold anticoagulation at this time. At the time my examination patient complains of new onset stutter however her NIH SS was 0. We will continue to monitor 04/23: Patient attempted to leave the facility overnight however she explained to me that she needed a phone pneumatic press hand and wanted to go to [facility] and purchase one. Patient's H/H noted to be 7.1/21.4 therefore she was transfused with 1 unit PRBC. Orthopedics consult is still pending. We will await restarting her systemic anticoagulation until orthopedic evaluations completed. 04/24: Awaiting ortho evaluation. Has no complaints. Hb stable Problems Atrial fibrillation with RVR, acute on chronic -Rate slightly controlled on p.o. Cardizem. -Cardiology evaluation appreciated -Holding eliquis due to anemia Acute on chronic diastolic CHF -Presented with a proBNP of 476 -IV Lasix twice daily -Potassium chloride 10 mEq daily -Cardiology recs appreciated -04/20 TTE shows gross global left ventricular wall motion and contractility are within normal limits, some ejection fraction 55 to 60%, impaired relaxation, pacemaker wire in the right ventricle, no pericardial effusion with evidence of mild pulmonary hypertension -Strict intake and output -Daily weights Left hip hematoma -Had hip replacement about 3 weeks ago and has not had a follow up appointment -04/16 CT left hip -04/21 CT pelvis without contrast shows chronic healing phase fracture deformities involving the left inferior and superior pubic rami, postoperative changes of the left total hip arthroplasty satisfactory appearance, large heterogeneous fluid collection in the left pelvic sidewall operative region likely representing hematoma -Orthopedics consulted, awaiting recs -Cardiology has opted to stop all anticoagulation in setting of hematoma Acute on chronic anemia -Hemoglobin on admission 7.5 -04/21 Hbg 6.8. Transfuse one unit of PRBCs -04/21 stool guaiac pending; she had colonscopy and EGD in [place] -Her stool is occasionally dark colored -GI has been consulted for further evaluation -GI recommended resumption of anticoagulation for atrial fibrillation as the patient did not have any noted GI sources of anemia and her anemia resolved with a transfusion of 1 unit PRBC -04/22 H/H 11/17.4 -04/21 iron 21, TIBC 271, ferritin 192 -04/23 H/H 7.24.1 -Transfuse 1 unit PRBC -Trend CBC GERD, chronic -continue Protonix Asthma, chronic -History of asthma -Albuterol as needed DM, chronic -CC cardiac diet -Accu-Cheks AC at bedtime -SSI -Hypoglycemia protocol -04/20 hemoglobin A1c 5.6 Hypothyroidism, chronic -Resume home Synthroid -04/22 TSH 6.410, free T4 1.6 DVT prophylaxis -SCDs to bilateral lower extremities while in bed -Hold chemical anticoagulation in setting of anemia Hypokalemia, resolved -04/21 potassium 3.5 -Repleted -04/22 potassium 3.7 -Trend BMP -Intervene as needed History Interval history: Patient seen and examined at bedside this morning No complaints Hospitalist Physical - Physical exam Narrative exam: VITAL SIGNS: Reviewed. GENERAL: Awake HEAD: No signs of head trauma. EYES: Pupils are equal. Extraocular motions intact. MOUTH: Oropharynx is normal. NECK: No adenopathy, no JVD. CHEST: Chest with diminished breath sounds bilaterally. No wheezes, rales, or rhonchi. CARDIAC: normal S1 and S2, without murmurs, gallops, or rubs. ABDOMEN: Soft, non tender and non distended. No rebound or guarding, and no masses palpated. Bowel Sounds normal. MUSCULOSKELETAL: LLE -slight induration surrounding surgical site, has slight tenderness on palpation. NEUROLOGIC EXAM: Alert and oriented x3. No focal neurologic deficits SKIN: No obvious lesions - Constitutional Vitals: Temp Pulse Resp BP Pulse Ox 99.3 F 98 H 18 115/70 92 04/24/20 03:37 04/24/20 07:32 04/24/20 03:37 04/24/20 07:32 04/24/20 03:37 Results - Labs CBC & Chem 7: 04/24/20 04:55 04/24/20 04:55 Labs: Laboratory Last Values WBC 6.8 K/mm3 (4.5-11.0) 04/24/20 04:55 RBC 3.02 M/mm3 (3.65-5.03) L 04/24/20 04:55 Hgb 8.8 gm/dl (10.1-14.3) L 04/24/20 04:55 Hct 26.8 % (30.3-42.9) L 04/24/20 04:55 MCV 89 fl (79-97) 04/24/20 04:55 MCH 29 pg (28-32) 04/24/20 04:55 MCHC 33 % (30-34) 04/24/20 04:55 RDW 20.7 % (13.2-15.2) H 04/24/20 04:55 Plt Count 186 K/mm3 (140-440) 04/24/20 04:55 Lymph % (Auto) 17.0 % (13.4-35.0) 04/21/20 05:58 [place] % (Auto) 12.4 % (0.0-7.3) H 04/21/20 05:58 Eos % (Auto) 2.1 % (0.0-4.3) 04/21/20 05:58 Baso % (Auto) 0.6 % (0.0-1.8) 04/21/20 05:58 Lymph # (Auto) 1.2 K/mm3 (1.2-5.4) 04/21/20 05:58 [place] # (Auto) 0.9 K/mm3 (0.0-0.8) H 04/21/20 05:58 Eos # (Auto) 0.1 K/mm3 (0.0-0.4) 04/21/20 05:58 Baso # (Auto) 0.0 K/mm3 (0.0-0.1) 04/21/20 05:58 Seg Neutrophils % 67.9 % (40.0-70.0) 04/21/20 05:58 Seg Neutrophils # 4.6 K/mm3 (1.8-7.7) 04/21/20 05:58 PT 13.2 Sec. (12.2-14.9) 04/19/20 22:19 INR 1.01 (0.87-1.13) 04/19/20 22:19 Sodium 138 mmol/L (137-145) 04/24/20 04:55 Potassium 3.6 mmol/L (3.6-5.0) 04/24/20 04:55 Chloride 99.6 mmol/L (98-107) 04/24/20 04:55 Carbon Dioxide 26 mmol/L (22-30) 04/24/20 04:55 Anion Gap 16 mmol/L 04/24/20 04:55 BUN 12 mg/dL (7-17) 04/24/20 04:55 Creatinine 0.6 mg/dL (0.6-1.2) 04/24/20 04:55 Estimated GFR > 60 ml/min 04/24/20 04:55 BUN/Creatinine Ratio 20 % 04/24/20 04:55 Glucose 104 mg/dL (65-100) H 04/24/20 04:55 POC Glucose 107 mg/dL (70-105) H 04/24/20 08:04 Hemoglobin A1c 5.1 % (4-6) 04/20/20 05:15 Calcium 7.9 mg/dL (8.4-10.2) L 04/24/20 04:55 Iron 21 ug/dL (37-170) L 04/21/20 08:55 TIBC 271 mcg/dL (250-450) 04/21/20 08:55 Ferritin 192.5 ng/mL (10.0-200.0) 04/21/20 08:55 Total Bilirubin 0.90 mg/dL (0.1-1.2) 04/19/20 22:19 AST 18 units/L (5-40) 04/19/20 22:19 ALT 13 units/L (7-56) 04/19/20 22:19 Alkaline Phosphatase 138 units/L (35-129) H 04/19/20 22:19 NT-Pro-B Natriuret Pep 476.3 pg/mL (0-900) 04/19/20 22:19 Total Protein 5.9 g/dL (6.3-8.2) L 04/19/20 22:19 Albumin 3.3 g/dL (3.9-5) L 04/19/20 22:19 Albumin/Globulin Ratio 1.3 % 04/19/20 22:19 TSH 6.410 mlU/mL (0.270-4.200) H 04/22/20 06:00 Free T4 1.61 ng/dL (0.76-1.46) H 04/22/20 06:00 Blood Type O NEGATIVE 04/21/20 08:26 Antibody Screen Negative 04/21/20 08:26 Crossmatch See Detail 04/21/20 08:26 Microbiology: Microbiology 04/20/20 05:15 Peripheral/Venous Blood Culture - Preliminary NO GROWTH AFTER 4 DAYS 04/20/20 06:10 Peripheral/Venous Blood Culture - Preliminary NO GROWTH AFTER 4 DAYS - Diagnostic Impressions Diagnostic Impressions: Echocardiogram 04/20/20 04:26 Transthoracic Echocardiogram Indication: A fib RVR; CHF-AE BP: 121/64 HR: 107 Conclusions *Technically difficult and limted study. *Grossly, global left ventricular wall motion and contractility are within normal limits. *The estimated ejection fraction is 55-60%. *Abnormal left ventricular diastolic filling is observed, consistent with impaired relaxation. *A pacemaker wire is visualized in the right ventricle. *There is evidence of mild pulmonary hypertension. *There is no pericardial effusion. Findings Left Ventricle: The left ventricular chamber size is normal. There is no left ventricular hypertrophy. Global left ventricular wall motion and contractility are within normal limits. Global left ventricular systolic function is normal. The estimated ejection fraction is 55-60%. Abnormal left ventricular diastolic filling is observed, consistent with impaired relaxation. Left Atrium: The left atrium is mildly dilated. Right Ventricle: The right ventricular cavity size is normal. The right ventricular global systolic function is normal. A pacemaker wire is visualized in the right ventricle. Aortic Valve: There is no evidence of aortic valve thickening. There is trace of aortic regurgitation. Mitral Valve: The mitral valve leaflets do not appear thickened. There is trace of mitral regurgitation. Tricuspid Valve: The tricuspid valve leaflets are normal. There is mild tricuspid regurgitation. The right ventricular systolic pressure is calculated at 45 mmHg. There is evidence of mild pulmonary hypertension. Pulmonic Valve: There is no evidence of pulmonic valve thickening. There is trace pulmonic regurgitation. Pericardium: There is no pericardial effusion. Aorta: The aorta appears normal. Venous: The inferior vena cava is not visualized. Measurements Chambers 2D Name Value Normal Range IVSd (2D) 1.11 cm (0.6 - 1.1) LVPWd (2D) 0.91 cm (0.6 - 1.1) LVIDd (2D) 3.91 cm (3.7 - 5.6) LVIDs (2D) 2.58 cm (2 - 3.8) LV FS (2D) 33.99 % - EF Teichholz (2D) 63.56 % - Ao root diameter (2D) 2.93 cm (2 - 3.7) Volumes/Mass Name Value Normal Range LA ESV SP 4CH (A/L) 80.85 ml - LA ESV SP 2CH (A/L) 70.84 ml - LA ESV BP (A/L) 78.34 ml - LA ESV BP (A/L) index 40.59 ml/m2 - LA ESV SP 4CH (MOD) 76.33 ml - LA ESV SP 2CH (MOD) 67.49 ml - LA ESV BP (MOD) 73.9 ml - LA ESV BP (MOD) index 38.29 ml/m2 - Diastolic/Systolic Function Name Value Normal Range MV E-wave Vmax 0.77 m/sec - MV deceleration time 207.26 msec - MV A-wave Vmax 0.67 m/sec - MV E:A ratio 1.15 ratio - Aortic Valve Name Value Normal Range AV Vmax 1.73 m/sec - AV VTI 29.62 cm - AV peak gradient 11.9 mmHg - AV mean gradient 6.35 mmHg - LVOT diameter 2.13 cm - LVOT Vmax 1.09 m/sec - LVOT VTI 21.25 cm - LVOT peak gradient 5.06 mmHg - LVOT mean gradient 2.74 mmHg - SV LVOT 75.59 ml - WILIAN (continuity Vmax) 2.24 cm2 - WILIAN (continuity VTI) 2.55 cm2 - AR PHT 492.62 msec - AR peak gradient 80.97 mmHg - Ascending Ao 3.25 cm - Tricuspid Valve Name Value Normal Range TR Vmax 3.06 m/sec - TR peak gradient 37 mmHg - RAP 8 mmHg - RVSP 45 mmHg - Pulmonic Valve/Qp:Qs Name Value Normal Range PV Vmax 1.37 m/sec - PV peak gradient 7.54 mmHg - CT end-diastolic Vmax 1.42 m/sec - PV acceleration time 91.34 msec - [place]/IV: Voiding Method Toilet IV Catheter Type [Right INT / Saline Lock Antecubital] IV Catheter Type [Right INT / Saline Lock External Jugular] Active Medications - Current Medications Current Medications: Generic Name Dose Route Start Last Admin Trade Name Freq PRN Reason Stop Dose Admin Acetaminophen 650 mg 04/20/20 04:28 Acetaminophen 325 Mg Tab PO Q4H PRN Pain MILD(1-3)/Fever >100.5/MULLINS Albuterol 2.5 mg 04/20/20 04:28 Albuterol 2.5 Mg/3 Ml Nebu IH Q3HRT PRN Shortness Of Breath Dextrose 0 ml 04/20/20 04:28 Dextrose 50% In Water (25gm) 50 Ml Syringe IV Q30MIN PRN Hypoglycemia Protocol Diltiazem HCl 60 mg 04/20/20 12:00 04/24/20 07:32 Diltiazem 60 Mg Tab PO 60 mg Q6HR WILLIE Administration Docusate Sodium 100 mg 04/20/20 10:00 04/23/20 21:47 Docusate Sodium 100 Mg Cap PO 100 mg BID WILLIE Administration Furosemide 40 mg 04/22/20 18:00 04/24/20 07:00 Furosemide 40 Mg/4 Ml Inj IV 40 mg 0600,1800 WILLIE Administration Insulin Human Lispro 0 unit 04/20/20 07:30 04/24/20 08:21 Insulin Lispro 100 Unit/Ml SUB-Q Not Given ACHS WILLIE Protocol Morphine Sulfate 2 mg 04/20/20 04:26 Morphine 2 Mg/1 Ml Inj IV Q5MIN PRN Chest Pain unrelieved by NTG Nitroglycerin 0.4 mg 04/20/20 04:26 Nitroglycerin 0.4 Mg Tab Subl SL .Q5MIN PRN Chest Pain Ondansetron HCl 4 mg 04/20/20 04:28 Ondansetron 4 Mg/2 Ml Inj IV Q8H PRN Nausea And Vomiting Oxycodone/Acetaminophen 1 tab 04/20/20 04:28 04/23/20 21:47 Oxycodone /Acetaminophen 5-325mg Tab PO 1 tab Q6H PRN Administration Pain, Moderate (4-6) Pantoprazole Sodium 40 mg 04/22/20 10:00 04/23/20 10:49 Pantoprazole 40 Mg Tab PO 40 mg QDAC WILLIE Administration Potassium Chloride 10 meq 04/20/20 10:00 04/23/20 10:49 Potassium Chloride Er 10 Meq Tab PO 10 meq QDAY WILLIE Administration Sodium Chloride 10 ml 04/20/20 10:00 04/23/20 21:58 Sodium Chloride 0.9% 10 Ml Flush Syringe IV 10 ml BID WILLIE Administration Sodium Chloride 10 ml 04/20/20 04:28 Sodium Chloride 0.9% 10 Ml Flush Syringe IV PRN PRN LINE FLUSH
--- NOTE | 2020-04-24 10:36 | Consultation ---
History of Present Illness - HPI Consult date: 04/24/20 Consult reason: fracture History of present illness: 64 y/o female who underwent left bipolar hip replacement approx 3 wks ago in [place], who presented with c/o bilateral LE swelling and post op hematoma. Asked by Medical team to evaluate need for aspiration of hematoma. I have reviewed the images from the CT scan show moderate amount of fluid with no evidence of gas seen. Patient's temperature and WBC w/n normal range. Due to the pandemic, I feel this patient should be simply observed at this point, doubt infective nature of this fluid collection. Past History Past Medical History: atrial fib, anemia, GERD, heart failure, other (as per HPI) Past Surgical History: Other (Left femur repair (03/2020), pacemaker, cholecystectomy) Social history: lives with family, full code, other (Former smoker). denies: smoking, alcohol abuse Family history: hypertension Medications and Allergies Allergies Allergy/AdvReac Type Severity Reaction Status Date / Time ranitidine [From Zantac] Allergy Unknown Verified 04/19/20 21:10 Home Medications Medication Instructions Recorded Confirmed Last Taken Type Apixaban [Eliquis] 5 mg PO DAILY #30 tablet 04/22/20 Unknown Rx Hydroxyzine HCl [hydrOXYzine] 50 mg PO HS 04/22/20 04/22/20 Unknown History Oxycodone HCl/Acetaminophen 1 each PO Q6HR PRN #30 tablet 04/22/20 Unknown Rx [Percocet 10/325 mg] Pregabalin 150 mg PO DAILY 04/22/20 04/22/20 Unknown History amLODIPine [Norvasc] 5 mg PO DAILY 04/22/20 04/22/20 Unknown History Active Meds: Active Medications Acetaminophen (Acetaminophen 325 Mg Tab) 650 mg PO Q4H PRN PRN Reason: Pain MILD(1-3)/Fever >100.5/MULLINS Albuterol (Albuterol 2.5 Mg/3 Ml Nebu) 2.5 mg IH Q3HRT PRN PRN Reason: Shortness Of Breath Dextrose (Dextrose 50% In Water (25gm) 50 Ml Syringe) 0 ml IV Q30MIN PRN; Protocol PRN Reason: Hypoglycemia Diltiazem HCl (Diltiazem 60 Mg Tab) 60 mg PO Q6HR WILLIE Last Admin: 04/24/20 07:32 Dose: 60 mg Documented by: Docusate Sodium (Docusate Sodium 100 Mg Cap) 100 mg PO BID [facility] Last Admin: 04/23/20 21:47 Dose: 100 mg Documented by: Furosemide (Furosemide 40 Mg/4 Ml Inj) 40 mg IV 0600,1800 [facility] Last Admin: 04/24/20 07:00 Dose: 40 mg Documented by: Insulin Human Lispro (Insulin Lispro 100 Unit/Ml) 0 unit SUB-Q ACHS [facility]; Protocol Last Admin: 04/24/20 08:21 Dose: Not Given Documented by: Morphine Sulfate (Morphine 2 Mg/1 Ml Inj) 2 mg IV Q5MIN PRN PRN Reason: Chest Pain unrelieved by NTG Nitroglycerin (Nitroglycerin 0.4 Mg Tab Subl) 0.4 mg SL .Q5MIN PRN PRN Reason: Chest Pain Ondansetron HCl (Ondansetron 4 Mg/2 Ml Inj) 4 mg IV Q8H PRN PRN Reason: Nausea And Vomiting Oxycodone/Acetaminophen (Oxycodone /Acetaminophen 5-325mg Tab) 1 tab PO Q6H PRN PRN Reason: Pain, Moderate (4-6) Last Admin: 04/23/20 21:47 Dose: 1 tab Documented by: Pantoprazole Sodium (Pantoprazole 40 Mg Tab) 40 mg PO QDAC [facility] Last Admin: 04/23/20 10:49 Dose: 40 mg Documented by: Potassium Chloride (Potassium Chloride Er 10 Meq Tab) 10 meq PO QDAY [facility] Last Admin: 04/23/20 10:49 Dose: 10 meq Documented by: Sodium Chloride (Sodium Chloride 0.9% 10 Ml Flush Syringe) 10 ml IV BID [facility] Last Admin: 04/23/20 21:58 Dose: 10 ml Documented by: Sodium Chloride (Sodium Chloride 0.9% 10 Ml Flush Syringe) 10 ml IV PRN PRN PRN Reason: LINE FLUSH
[2020-04-24] MEDS: DOCUSATE SODIUM 100 MG CAP PO SCH ×2 (10:40→21:37)
[2020-04-24] MEDS: POTASSIUM CHLORIDE ER 10 MEQ TAB PO SCH (10:40)
[2020-04-24] MEDS: PANTOPRAZOLE 40 MG TAB PO SCH (10:41)
--- NOTE | 2020-04-24 11:46 | Gastroenterology Progress Note ---
Assessment and Plan - Patient Problems (1) Symptomatic anemia Current Visit: Yes Status: Acute Plan to address problem: - Unclear w/u in [place] (patient may be mildly demented, as vague in answering some questions), but appropriately describes EGD/colon being done recently. In addition, she has a large post-op hematoma, likely exacerbated by her chronic Eliquis use. - Will continue MVI/protonix, and follow serial hematocrits. - If no gross bleeding, and hct improves, OK to d/c home (or to rehab) and we can consider a repeat elective EGD/colon (possibly capsule endoscopy as well) when she is recovered from hip surgery and hematoma. - OK to resume Eliquis in 2 days (Sunday) if no gross bleeding, and hct continues to improve. Subjective Date of service: 04/24/20 Principal diagnosis: Symptomatic Anemia Interval history: The patient has no N/V/abdominal pain. She is tolerating her diet, without melena or hematochezia. Objective - Constitutional Vitals: Temp Pulse Resp BP Pulse Ox 99.3 F 98 H 18 115/70 92 04/24/20 03:37 04/24/20 07:32 04/24/20 03:37 04/24/20 07:32 04/24/20 03:37 General appearance: no acute distress - EENT ENT: hearing intact, clear oral mucosa - Respiratory Respiratory effort: normal Respiratory: bilateral: CTA - Cardiovascular Rhythm: regular Heart Sounds: Present: S1 & S2 - Gastrointestinal General gastrointestinal: Present: soft, non-tender, non-distended - Labs CBC & Chem 7: 04/24/20 04:55 04/24/20 04:55 Labs: Laboratory Results - last 24 hr 04/21/20 04/23/20 04/24/20 08:26 20:31 04:55 WBC 6.8 RBC 3.02 L Hgb 8.8 L Hct 26.8 L MCV 89 MCH 29 MCHC 33 RDW 20.7 H Plt Count 186 Sodium Potassium Chloride Carbon Dioxide Anion Gap BUN Creatinine Estimated GFR BUN/Creatinine Ratio Glucose POC Glucose 118 H Calcium Blood Type O NEGATIVE Antibody Screen Negative Crossmatch See Detail 04/24/20 04/24/20 04:55 08:04 WBC RBC Hgb Hct MCV MCH MCHC RDW Plt Count Sodium 138 Potassium 3.6 Chloride 99.6 Carbon Dioxide 26 Anion Gap 16 BUN 12 Creatinine 0.6 Estimated GFR > 60 BUN/Creatinine Ratio 20 Glucose 104 H POC Glucose 107 H Calcium 7.9 L Blood Type Antibody Screen Crossmatch
[2020-04-24] MEDS: MULTIVITAMINS,THER W-MINERALS TAB PO SCH (12:24)
--- NOTE | 2020-04-24 13:14 | Progress Note ---
Assessment and Plan Severe anemia/large pelvic hematoma Recent left hip replacement A. fib with RVR/pacemaker/SSS HFpEF EF 55% Hypertension Diabetes Noncompliance/lost medications prior to admission Patient sees a rail signal designer in [place] Dr. Plasencia [phone] Hemoglobin stable 8.8 after transfusion Consider changing diuretics to oral Telemetry reveals atrial fibrillation with RVR heart rates in the 110s to 120s Recommend amiodarone 200 mg daily Start Toprol XL 50 mg daily in the a.m. Subjective Date of service: 04/24/20 Principal diagnosis: Symptomatic Anemia Interval history: Patient sitting up in bed states that she feels her heart beating rapidly. Objective Vital Signs Temp Pulse Resp Resp BP Pulse Ox 04/24/20 10:00 89 04/24/20 07:32 98 H 115/70 04/24/20 05:00 98 H 04/24/20 03:37 99.3 F 98 H 18 115/70 92 04/24/20 00:00 93 H 92/54 04/23/20 23:55 99.5 F 98 H 16 115/70 95 04/23/20 21:47 18 04/23/20 21:00 18 04/23/20 19:40 98.2 F 93 H 18 92/54 94 04/23/20 16:40 99.3 F 90 16 98/63 98 04/23/20 13:39 91 H 100/56 98 - Physical Examination General: No Apparent Distress HEENT: Positive: PERRL, Normocephaly, Mucus Membranes Moist Neck: Positive: neck supple, trachea midline Cardiac: Positive: irregularly irregular, Tachycardia Lungs: Positive: clear to auscultation, Normal Breath Sounds Neuro: Positive: Grossly Intact Abdomen: Positive: Soft, Active Bowel Sounds. Negative: Tender Skin: Negative: Rash Musculoskeletal: No Pain Extremities: Present: +1 Edema - Labs and Meds CBC 04/24/20 Range/Units 04:55 WBC 6.8 (4.5-11.0) K/mm3 RBC 3.02 L (3.65-5.03) M/mm3 Hgb 8.8 L (10.1-14.3) gm/dl Hct 26.8 L (30.3-42.9) % Plt Count 186 (140-440) K/mm3 Comprehensive Metabolic Panel 04/24/20 Range/Units 04:55 Sodium 138 (137-145) mmol/L Potassium 3.6 (3.6-5.0) mmol/L Chloride 99.6 (98-107) mmol/L Carbon Dioxide 26 (22-30) mmol/L BUN 12 (7-17) mg/dL Creatinine 0.6 (0.6-1.2) mg/dL Glucose 104 H (65-100) mg/dL Calcium 7.9 L (8.4-10.2) mg/dL - Imaging and Cardiology EKG: report reviewed, image reviewed Echo: report reviewed ( EF 55-60%, impaired relaxation, pacemaker wire in RV, mild pulm HTN, RVSP 45mmHg. ) - EKG Sinus rhythms and dysrhythmias: sinus rhythm
[2020-04-24] MEDS ORDERED: AMIODARONE 900 MG in DEXTROSE 5% IN WATER 482 ML IV SCH (14:00)
[2020-04-24] MEDS: AMIODARONE 200 MG TAB PO SCH (14:17)
[2020-04-24] MEDS: oxyCODONE /ACETAMINOPHEN 5-325MG TAB PO PRN (21:37)
[2020-04-25] MEDS: oxyCODONE /ACETAMINOPHEN 5-325MG TAB PO PRN ×2 (06:18→21:55)
[2020-04-25] MEDS: FUROSEMIDE 40 MG/4 ML INJ IV SCH ×2 (06:19→17:36)
[2020-04-25] MEDS: AMIODARONE 200 MG TAB PO SCH (10:00)
[2020-04-25] MEDS: DOCUSATE SODIUM 100 MG CAP PO SCH ×2 (10:00→21:55)
[2020-04-25] MEDS: METOPROLOL SUCCINATE XL 50 MG TAB PO SCH (10:00)
[2020-04-25] MEDS: PANTOPRAZOLE 40 MG TAB PO SCH (10:00)
[2020-04-25] MEDS: MULTIVITAMINS,THER W-MINERALS TAB PO SCH (10:00)
[2020-04-25] MEDS: POTASSIUM CHLORIDE ER 10 MEQ TAB PO SCH (10:00)
[2020-04-25] MEDS: INSULIN LISPRO 100 UNIT/ML SUB-Q SCH ×4 (10:01→21:56)
--- NOTE | 2020-04-25 10:47 | Progress Note ---
Assessment and Plan Assessment and plan: This is a 64-year-old -[place] female with hypertension, A. fib on anticoagulation, diabetes, CHF, asthma, bronchitis, and hypothyroidism who presents to [facility] on 04/20 with complaints of bilateral lower extremity edema, palpitations, and shortness of breath worsening over the past 3 days. Cardio logy, gastroenterology and orthopedic surgery was consulted. 04/21: Hemoglobin dropped to 6.8 this morning. Plan to transfuse 1 unit today, stool guaiac ordered-GI has been consulted. Patient complains of left hip pain- she recently had surgery on the left hip about 3 weeks prior to presentation 04/22: CT abdomen/pelvis which is concerning for hematoma, orthopedics has been consulted. Cardiology has opted to hold anticoagulation at this time. At the time my examination patient complains of new onset stutter however her NIH SS was 0. We will continue to monitor 04/23: Patient attempted to leave the facility overnight however she explained to me that she needed a phone jewelry repairer and wanted to go to [facility] and purchase one. Patient's H/H noted to be 7.1/21.4 therefore she was transfused with 1 unit PRBC. Orthopedics consult is still pending. We will await restarting her systemic anticoagulation until orthopedic evaluations completed. 04/24: Awaiting ortho evaluation. Has no complaints. Hb stable Problems Atrial fibrillation with RVR, acute on chronic -Rate slightly controlled on p.o. Cardizem. -Cardiology evaluation appreciated -Holding eliquis due to anemia Acute on chronic diastolic CHF -Presented with a proBNP of 476 -IV Lasix twice daily -Potassium chloride 10 mEq daily -Cardiology recs appreciated -04/20 TTE shows gross global left ventricular wall motion and contractility are within normal limits, some ejection fraction 55 to 60%, impaired relaxation, pacemaker wire in the right ventricle, no pericardial effusion with evidence of mild pulmonary hypertension -Strict intake and output -Daily weights Left hip hematoma -Had hip replacement about 3 weeks ago and has not had a follow up appointment -04/16 CT left hip -04/21 CT pelvis without contrast shows chronic healing phase fracture deformities involving the left inferior and superior pubic rami, postoperative changes of the left total hip arthroplasty satisfactory appearance, large heterogeneous fluid collection in the left pelvic sidewall operative region likely representing hematoma -Orthopedics recommends conservation management of hematoma. -Cardiology has opted to stop all anticoagulation in setting of hematoma Acute on chronic anemia -Hemoglobin on admission 7.5 -04/21 Hbg 6.8. Transfuse one unit of PRBCs -04/21 stool guaiac pending; she had colonscopy and EGD in [place] -Her stool is occasionally dark colored -GI has been consulted for further evaluation -GI recommended resumption of anticoagulation on 04/26 if hb remains stable -04/22 H/H 11/17.4 -04/21 iron 21, TIBC 271, ferritin 192 -04/23 H/H 7.1/24.1 -Transfuse 1 unit PRBC -Trend CBC GERD, chronic -continue Protonix Asthma, chronic -History of asthma -Albuterol as needed DM, chronic -CC cardiac diet -Accu-Cheks AC at bedtime -SSI -Hypoglycemia protocol -04/20 hemoglobin A1c 5.6 Hypothyroidism, chronic -Resume home Synthroid -04/22 TSH 6.410, free T4 1.6 DVT prophylaxis -SCDs to bilateral lower extremities while in bed -Hold chemical anticoagulation in setting of anemia Hypokalemia, resolved -04/21 potassium 3.5 -Repleted -04/22 potassium 3.7 -Trend BMP -Intervene as needed History Interval history: Patient seen and examined at bedside this morning No complaints Hospitalist Physical - Physical exam Narrative exam: VITAL SIGNS: Reviewed. GENERAL: Awake HEAD: No signs of head trauma. EYES: Pupils are equal. Extraocular motions intact. MOUTH: Oropharynx is normal. NECK: No adenopathy, no JVD. CHEST: Chest with diminished breath sounds bilaterally. No wheezes, rales, or rhonchi. CARDIAC: normal S1 and S2, without murmurs, gallops, or rubs. ABDOMEN: Soft, non tender and non distended. No rebound or guarding, and no masses palpated. Bowel Sounds normal. MUSCULOSKELETAL: LLE -slight induration surrounding surgical site, has slight tenderness on palpation. NEUROLOGIC EXAM: Alert and oriented x3. No focal neurologic deficits SKIN: No obvious lesions - Constitutional Vitals: Temp Pulse Resp BP Pulse Ox 98.3 F 99 H 18 101/74 97 04/25/20 07:41 04/25/20 07:41 04/25/20 07:41 04/25/20 07:41 04/25/20 07:41 Results - Labs CBC & Chem 7: 04/24/20 04:55 04/24/20 04:55 Labs: Laboratory Last Values WBC 6.8 K/mm3 (4.5-11.0) 04/24/20 04:55 RBC 3.02 M/mm3 (3.65-5.03) L 04/24/20 04:55 Hgb 8.8 gm/dl (10.1-14.3) L 04/24/20 04:55 Hct 26.8 % (30.3-42.9) L 04/24/20 04:55 MCV 89 fl (79-97) 04/24/20 04:55 MCH 29 pg (28-32) 04/24/20 04:55 MCHC 33 % (30-34) 04/24/20 04:55 RDW 20.7 % (13.2-15.2) H 04/24/20 04:55 Plt Count 186 K/mm3 (140-440) 04/24/20 04:55 Lymph % (Auto) 17.0 % (13.4-35.0) 04/21/20 05:58 Throckmorton % (Auto) 12.4 % (0.0-7.3) H 04/21/20 05:58 Eos % (Auto) 2.1 % (0.0-4.3) 04/21/20 05:58 Baso % (Auto) 0.6 % (0.0-1.8) 04/21/20 05:58 Lymph # (Auto) 1.2 K/mm3 (1.2-5.4) 04/21/20 05:58 Throckmorton # (Auto) 0.9 K/mm3 (0.0-0.8) H 04/21/20 05:58 Eos # (Auto) 0.1 K/mm3 (0.0-0.4) 04/21/20 05:58 Baso # (Auto) 0.0 K/mm3 (0.0-0.1) 04/21/20 05:58 Seg Neutrophils % 67.9 % (40.0-70.0) 04/21/20 05:58 Seg Neutrophils # 4.6 K/mm3 (1.8-7.7) 04/21/20 05:58 PT 13.2 Sec. (12.2-14.9) 04/19/20 22:19 INR 1.01 (0.87-1.13) 04/19/20 22:19 Sodium 138 mmol/L (137-145) 04/24/20 04:55 Potassium 3.6 mmol/L (3.6-5.0) 04/24/20 04:55 Chloride 99.6 mmol/L (98-107) 04/24/20 04:55 Carbon Dioxide 26 mmol/L (22-30) 04/24/20 04:55 Anion Gap 16 mmol/L 04/24/20 04:55 BUN 12 mg/dL (7-17) 04/24/20 04:55 Creatinine 0.6 mg/dL (0.6-1.2) 04/24/20 04:55 Estimated GFR > 60 ml/min 04/24/20 04:55 BUN/Creatinine Ratio 20 % 04/24/20 04:55 Glucose 104 mg/dL (65-100) H 04/24/20 04:55 POC Glucose 123 mg/dL (70-105) H 04/24/20 16:16 Hemoglobin A1c 5.1 % (4-6) 04/20/20 05:15 Calcium 7.9 mg/dL (8.4-10.2) L 04/24/20 04:55 Iron 21 ug/dL (37-170) L 04/21/20 08:55 TIBC 271 mcg/dL (250-450) 04/21/20 08:55 Ferritin 192.5 ng/mL (10.0-200.0) 04/21/20 08:55 Total Bilirubin 0.90 mg/dL (0.1-1.2) 04/19/20 22:19 AST 18 units/L (5-40) 04/19/20 22:19 ALT 13 units/L (7-56) 04/19/20 22:19 Alkaline Phosphatase 138 units/L (35-129) H 04/19/20 22:19 NT-Pro-B Natriuret Pep 476.3 pg/mL (0-900) 04/19/20 22:19 Total Protein 5.9 g/dL (6.3-8.2) L 04/19/20 22:19 Albumin 3.3 g/dL (3.9-5) L 04/19/20 22:19 Albumin/Globulin Ratio 1.3 % 04/19/20 22:19 TSH 6.410 mlU/mL (0.270-4.200) H 04/22/20 06:00 Free T4 1.61 ng/dL (0.76-1.46) H 04/22/20 06:00 Blood Type O NEGATIVE 04/21/20 08:26 Antibody Screen Negative 04/21/20 08:26 Crossmatch See Detail 04/21/20 08:26 Microbiology: Microbiology 04/20/20 05:15 Peripheral/Venous Blood Culture - Final NO GROWTH AFTER 5 DAYS 04/20/20 06:10 Peripheral/Venous Blood Culture - Final NO GROWTH AFTER 5 DAYS - Diagnostic Impressions Diagnostic Impressions: Echocardiogram 04/20/20 04:26 Transthoracic Echocardiogram Indication: A fib RVR; CHF-AE BP: 121/64 HR: 107 Conclusions *Technically difficult and limted study. *Grossly, global left ventricular wall motion and contractility are within normal limits. *The estimated ejection fraction is 55-60%. *Abnormal left ventricular diastolic filling is observed, consistent with impaired relaxation. *A pacemaker wire is visualized in the right ventricle. *There is evidence of mild pulmonary hypertension. *There is no pericardial effusion. Findings Left Ventricle: The left ventricular chamber size is normal. There is no left ventricular hypertrophy. Global left ventricular wall motion and contractility are within normal limits. Global left ventricular systolic function is normal. The estimated ejection fraction is 55-60%. Abnormal left ventricular diastolic filling is observed, consistent with impaired relaxation. Left Atrium: The left atrium is mildly dilated. Right Ventricle: The right ventricular cavity size is normal. The right ventricular global systolic function is normal. A pacemaker wire is visualized in the right ventricle. Aortic Valve: There is no evidence of aortic valve thickening. There is trace of aortic regurgitation. Mitral Valve: The mitral valve leaflets do not appear thickened. There is trace of mitral regurgitation. Tricuspid Valve: The tricuspid valve leaflets are normal. There is mild tricuspid regurgitation. The right ventricular systolic pressure is calculated at 45 mmHg. There is evidence of mild pulmonary hypertension. Pulmonic Valve: There is no evidence of pulmonic valve thickening. There is trace pulmonic regurgitation. Pericardium: There is no pericardial effusion. Aorta: The aorta appears normal. Venous: The inferior vena cava is not visualized. Measurements Chambers 2D Name Value Normal Range IVSd (2D) 1.11 cm (0.6 - 1.1) LVPWd (2D) 0.91 cm (0.6 - 1.1) LVIDd (2D) 3.91 cm (3.7 - 5.6) LVIDs (2D) 2.58 cm (2 - 3.8) LV FS (2D) 33.99 % - EF Teichholz (2D) 63.56 % - Ao root diameter (2D) 2.93 cm (2 - 3.7) Volumes/Mass Name Value Normal Range LA ESV SP 4CH (A/L) 80.85 ml - LA ESV SP 2CH (A/L) 70.84 ml - LA ESV BP (A/L) 78.34 ml - LA ESV BP (A/L) index 40.59 ml/m2 - LA ESV SP 4CH (MOD) 76.33 ml - LA ESV SP 2CH (MOD) 67.49 ml - LA ESV BP (MOD) 73.9 ml - LA ESV BP (MOD) index 38.29 ml/m2 - Diastolic/Systolic Function Name Value Normal Range MV E-wave Vmax 0.77 m/sec - MV deceleration time 207.26 msec - MV A-wave Vmax 0.67 m/sec - MV E:A ratio 1.15 ratio - Aortic Valve Name Value Normal Range AV Vmax 1.73 m/sec - AV VTI 29.62 cm - AV peak gradient 11.9 mmHg - AV mean gradient 6.35 mmHg - LVOT diameter 2.13 cm - LVOT Vmax 1.09 m/sec - LVOT VTI 21.25 cm - LVOT peak gradient 5.06 mmHg - LVOT mean gradient 2.74 mmHg - SV LVOT 75.59 ml - WILIAN (continuity Vmax) 2.24 cm2 - WILIAN (continuity VTI) 2.55 cm2 - AR PHT 492.62 msec - AR peak gradient 80.97 mmHg - Ascending Ao 3.25 cm - Tricuspid Valve Name Value Normal Range TR Vmax 3.06 m/sec - TR peak gradient 37 mmHg - RAP 8 mmHg - RVSP 45 mmHg - Pulmonic Valve/Qp:Qs Name Value Normal Range PV Vmax 1.37 m/sec - PV peak gradient 7.54 mmHg - ME end-diastolic Vmax 1.42 m/sec - PV acceleration time 91.34 msec - Hamlin/IV: Voiding Method Toilet IV Catheter Type [Right INT / Saline Lock Antecubital] IV Catheter Type [Right INT / Saline Lock External Jugular] Active Medications - Current Medications Current Medications: Generic Name Dose Route Start Last Admin Trade Name Freq PRN Reason Stop Dose Admin Acetaminophen 650 mg 04/20/20 04:28 Acetaminophen 325 Mg Tab PO Q4H PRN Pain MILD(1-3)/Fever >100.5/MULLINS Albuterol 2.5 mg 04/20/20 04:28 Albuterol 2.5 Mg/3 Ml Nebu IH Q3HRT PRN Shortness Of Breath Amiodarone HCl 200 mg 04/24/20 14:00 04/25/20 10:00 Amiodarone 200 Mg Tab PO 200 mg QDAY WILLIE Administration Dextrose 0 ml 04/20/20 04:28 Dextrose 50% In Water (25gm) 50 Ml Syringe IV Q30MIN PRN Hypoglycemia Protocol Docusate Sodium 100 mg 04/20/20 10:00 04/25/20 10:00 Docusate Sodium 100 Mg Cap PO 100 mg BID WILLIE Administration Furosemide 40 mg 04/22/20 18:00 04/25/20 06:19 Furosemide 40 Mg/4 Ml Inj IV 40 mg 0600,1800 WILLIE Administration Amiodarone HCl 900 mg/ 500 mls @ 33.333 mls/hr 04/24/20 14:00 04/24/20 21:39 Dextrose IV 0.5 mg/min DIRECT WILLIE 16.66 mls/hr Titration Protocol 1 MG/MIN Insulin Human Lispro 0 unit 04/20/20 07:30 04/25/20 10:01 Insulin Lispro 100 Unit/Ml SUB-Q Not Given ACHS WILLIE Protocol Metoprolol Succinate 50 mg 04/25/20 10:00 04/25/20 10:00 Metoprolol Succinate Xl 50 Mg Tab PO 50 mg QDAY WILLIE Administration Morphine Sulfate 2 mg 04/20/20 04:26 Morphine 2 Mg/1 Ml Inj IV Q5MIN PRN Chest Pain unrelieved by NTG Multivitamins/Minerals 1 each 04/24/20 12:00 04/25/20 10:00 Multivitamins,Ther W-Minerals Tab PO 1 each QDAY WILLIE Administration Nitroglycerin 0.4 mg 04/20/20 04:26 Nitroglycerin 0.4 Mg Tab Subl SL .Q5MIN PRN Chest Pain Ondansetron HCl 4 mg 04/20/20 04:28 Ondansetron 4 Mg/2 Ml Inj IV Q8H PRN Nausea And Vomiting Oxycodone/Acetaminophen 1 tab 04/20/20 04:28 04/25/20 06:18 Oxycodone /Acetaminophen 5-325mg Tab PO 1 tab Q6H PRN Administration Pain, Moderate (4-6) Pantoprazole Sodium 40 mg 04/22/20 10:00 04/25/20 10:00 Pantoprazole 40 Mg Tab PO 40 mg QDAC WILLIE Administration Potassium Chloride 10 meq 04/20/20 10:00 04/25/20 10:00 Potassium Chloride Er 10 Meq Tab PO 10 meq QDAY WILLIE Administration Sodium Chloride 10 ml 04/20/20 10:00 04/25/20 10:01 Sodium Chloride 0.9% 10 Ml Flush Syringe IV 10 ml BID WILLIE Administration Sodium Chloride 10 ml 04/20/20 04:28 Sodium Chloride 0.9% 10 Ml Flush Syringe IV PRN PRN LINE FLUSH
--- NOTE | 2020-04-25 11:51 | Progress Note ---
Assessment and Plan Severe anemia/large pelvic hematoma Recent left hip replacement A. fib with RVR/pacemaker/SSS HFpEF EF 55% Hypertension Diabetes Noncompliance/lost medications prior to admission Patient sees a supervisor accounting clerks in [place] Dr. Plasencia [phone], patient apparently reports that she has relocated and is living with her son here in [facility]. Patient can follow-up with Dr. Jasvir Vera [phone] Telemetry: Sinus rhythm today Hemoglobin stable 8.8 after transfusion Consider changing diuretics to oral Continue amiodarone 200 mg daily Continue Toprol XL 50 mg daily in the a.m. Continue oral anticoagulation if okay by Ortho and gastroenterology Subjective Date of service: 04/25/20 Principal diagnosis: Symptomatic Anemia Interval history: Patient walking around without any complaints. She reports that she feels much better. Objective Vital Signs Temp Pulse Resp BP BP Pulse Ox 04/25/20 07:41 98.3 F 99 H 18 101/74 97 04/24/20 22:00 92 H 04/24/20 20:00 99.2 F 98 H 24 100/64 97 04/24/20 17:37 99.0 F 94 H 18 110/64 - Physical Examination General: No Apparent Distress HEENT: Positive: PERRL, Normocephaly, Mucus Membranes Moist Neck: Positive: neck supple, trachea midline Cardiac: Positive: Reg Rate and Rhythm Lungs: Positive: Normal Breath Sounds Neuro: Positive: Grossly Intact Abdomen: Positive: Soft, Active Bowel Sounds. Negative: Tender Skin: Negative: Rash Musculoskeletal: No Pain Extremities: Present: warm. Absent: edema - Imaging and Cardiology EKG: report reviewed, image reviewed Echo: report reviewed ( EF 55-60%, impaired relaxation, pacemaker wire in RV, mild pulm HTN, RVSP 45mmHg. ) - EKG Sinus rhythms and dysrhythmias: sinus rhythm
--- NOTE | 2020-04-25 15:51 | Gastroenterology Progress Note ---
Assessment and Plan - Patient Problems (1) Symptomatic anemia Current Visit: Yes Status: Acute Plan to address problem: - Unclear w/u in [place] (patient may be mildly demented, as vague in answering some questions), but appropriately describes EGD/colon being done recently. In addition, she has a large post-op hematoma, likely exacerbated by her chronic Eliquis use. - Will continue MVI/protonix, and follow serial hematocrits. - If no gross bleeding, and hct improves, OK to d/c home (or to rehab) on Sunday and we can consider a repeat elective EGD/colon (possibly capsule endoscopy as well) when she is recovered from hip surgery and hematoma. - OK to resume Eliquis on Sunday if no gross bleeding, and hct continues to improve. Subjective Date of service: 04/25/20 Principal diagnosis: Symptomatic Anemia Interval history: The patient is eating well without N/V/abdominal pain. There is no blood in the BMs. Objective - Constitutional Vitals: Temp Pulse Resp BP Pulse Ox 98.3 F 81 18 105/66 97 04/25/20 12:34 04/25/20 12:34 04/25/20 12:34 04/25/20 12:34 04/25/20 12:34 General appearance: no acute distress - EENT Eyes: PERRL, EOM intact ENT: hearing intact, clear oral mucosa - Respiratory Respiratory effort: normal Respiratory: bilateral: CTA - Cardiovascular Rhythm: regular Heart Sounds: Present: S1 & S2 - Gastrointestinal General gastrointestinal: Present: soft, non-tender, non-distended - Labs CBC & Chem 7: 04/24/20 04:55 04/24/20 04:55 Labs: Laboratory Results - last 24 hr 04/24/20 04/24/20 04/25/20 12:05 16:16 08:35 POC Glucose 109 H 123 H 120 H 04/25/20 12:33 POC Glucose 111 H
[2020-04-26] MEDS ORDERED: diphenhydrAMINE 25 MG CAP PO ONE (00:53)
[2020-04-26 05:28] LABS: Hematocrit 28.8 % (30.3-42.9); Hemoglobin 9.4 gm/dl (10.1-14.3); Mean Corpuscular HGB Conc 33 % (30-34); Mean Corpuscular Volume 89 fl (79-97); Platelet Count 208 K/mm3 (140-440); Red Blood Count 3.24 M/mm3 (3.65-5.03)
[2020-04-26] MEDS: FUROSEMIDE 40 MG/4 ML INJ IV SCH (06:10)
[2020-04-26] MEDS ORDERED: APIXABAN 5 MG TAB PO SCH ×2 (10:00→11:00)
[2020-04-26] MEDS: INSULIN LISPRO 100 UNIT/ML SUB-Q SCH ×4 (11:00→21:46)
[2020-04-26] MEDS: FUROSEMIDE 40 MG TAB PO SCH (11:11)
[2020-04-26] MEDS: AMIODARONE 200 MG TAB PO SCH (11:12)
[2020-04-26] MEDS: POTASSIUM CHLORIDE ER 10 MEQ TAB PO SCH (11:12)
[2020-04-26] MEDS: METOPROLOL SUCCINATE XL 50 MG TAB PO SCH (11:12)
[2020-04-26] MEDS: MULTIVITAMINS,THER W-MINERALS TAB PO SCH (11:13)
[2020-04-26] MEDS: DOCUSATE SODIUM 100 MG CAP PO SCH ×2 (11:13→21:31)
[2020-04-26] MEDS: PANTOPRAZOLE 40 MG TAB PO SCH (11:15)
--- NOTE | 2020-04-26 11:22 | Progress Note ---
Assessment and Plan tele reviewed - in SR with 5 beat and 11 beat runs NSVT noted this AM, pt asymptomatic. F/u BMP and Mg. Cont Toprol XL and PO amiodarone. Currently stable cardiac status. Pt is receiving Eliquis, ok to continue systemic anticoagulation per GI and orthopedic teams. However, pt was noted to have multiple saturated left hip dressings overnight. Recommend holding Eliquis from today and resume in 4 days. Currently stable cardiac status. Pt may discharge from cardiology standpoint. Recommend pt follow up with either her electrical line splicer in [place] or in our office with Dr. Boy Vera within 1-2 weeks ([phone]). Assessment and plan of care reviewed with pt at bedside and she verbalizes understanding. The patient has been seen in conjunction with Dr. Quiros who agrees with the assessment and plan of care. - Patient Problems (1) Paroxysmal atrial fibrillation with RVR Current Visit: Yes Status: Acute (2) Acute heart failure with preserved ejection fraction (HFpEF) Current Visit: Yes Status: Acute (3) Symptomatic anemia Current Visit: Yes Status: Acute (4) Cardiac pacemaker in situ Current Visit: Yes Status: Chronic (5) HTN (hypertension) Current Visit: Yes Status: Chronic (6) Diabetes Current Visit: Yes Status: Chronic Subjective Date of service: 04/26/20 Principal diagnosis: Symptomatic Anemia Interval history: pt resting in bed, feeling better. tele reviewed - in SR with 5 beat and 11 beat runs NSVT noted this AM, pt asymptomatic. Objective Last Vital Signs Temp 98.7 F 04/26/20 05:14 Pulse 86 04/26/20 11:12 Resp 20 04/26/20 05:14 BP 95/53 04/26/20 05:14 Pulse Ox 95 04/26/20 05:14 - Physical Examination General: No Apparent Distress HEENT: Positive: PERRL, Normocephaly, Mucus Membranes Moist Neck: Positive: neck supple, trachea midline Cardiac: Positive: Reg Rate and Rhythm, S1/S2 Lungs: Positive: Decreased Breath Sounds Neuro: Positive: Grossly Intact Abdomen: Positive: Soft, Active Bowel Sounds. Negative: Tender Skin: Negative: Rash Musculoskeletal: No Pain Extremities: Present: warm. Absent: edema - Labs and Meds CBC 04/26/20 Range/Units 04:49 WBC 7.4 (4.5-11.0) K/mm3 RBC 3.24 L (3.65-5.03) M/mm3 Hgb 9.4 L (10.1-14.3) gm/dl Hct 28.8 L (30.3-42.9) % Plt Count 208 (140-440) K/mm3 - Imaging and Cardiology EKG: report reviewed, image reviewed Echo: report reviewed ( EF 55-60%, impaired relaxation, pacemaker wire in RV, mild pulm HTN, RVSP 45mmHg. ) - EKG Sinus rhythms and dysrhythmias: sinus rhythm
--- NOTE | 2020-04-26 11:41 | Gastroenterology Progress Note ---
Assessment and Plan - Patient Problems (1) Symptomatic anemia Current Visit: Yes Status: Acute Plan to address problem: - Unclear w/u in [place] (patient may be mildly demented, as vague in answering some questions), but appropriately describes EGD/colon being done recently. In addition, she has a large post-op hematoma, likely exacerbated by her chronic Eliquis use. - Will continue MVI/protonix, and follow serial hematocrits. - Agree with Cards, that Eliquis should hold another 4 days (resume AM) due to hip wound oozing. - Will have her f/u in our clinic to discuss EGD/colon in a few weeks. - Will sign off for now; please call with questions. Subjective Date of service: 04/26/20 Principal diagnosis: Symptomatic Anemia Interval history: The patient had no melena or hematochezia overnight, and her hct is improved; however, she did have some oozing at the hip dressing site. Objective - Constitutional Vitals: Temp Pulse Resp BP Pulse Ox 98.7 F 86 20 95/53 95 04/26/20 05:14 04/26/20 11:12 04/26/20 05:14 04/26/20 05:14 04/26/20 05:14 General appearance: no acute distress - Respiratory Respiratory effort: normal Respiratory: bilateral: CTA - Cardiovascular Rhythm: regular Heart Sounds: Present: S1 & S2 - Gastrointestinal General gastrointestinal: Present: soft, non-tender, non-distended - Labs CBC & Chem 7: 04/26/20 04:49 04/24/20 04:55 Labs: Laboratory Results - last 24 hr 04/25/20 04/25/20 04/25/20 08:35 12:33 16:47 WBC RBC Hgb Hct MCV MCH MCHC RDW Plt Count POC Glucose 120 H 111 H 112 H 04/25/20 04/26/20 04/26/20 21:21 04:49 08:13 WBC 7.4 RBC 3.24 L Hgb 9.4 L Hct 28.8 L MCV 89 MCH 29 MCHC 33 RDW 21.0 H Plt Count 208 POC Glucose 111 H 91
--- NOTE | 2020-04-26 16:12 | Progress Note ---
Assessment and Plan Assessment and plan: Atrial fibrillation with RVR, acute on chronic -Rate slightly controlled on p.o. Cardizem. -Cardiology evaluation appreciated -Holding eliquis due to anemia Acute on chronic diastolic CHF -Presented with a proBNP of 476 -IV Lasix twice daily -Potassium chloride 10 mEq daily -Cardiology recs appreciated -04/20 TTE shows gross global left ventricular wall motion and contractility are within normal limits, some ejection fraction 55 to 60%, impaired relaxation, pacemaker wire in the right ventricle, no pericardial effusion with evidence of mild pulmonary hypertension -Strict intake and output -Daily weights Left hip hematoma -Had hip replacement about 3 weeks ago and has not had a follow up appointment -04/21 CT pelvis without contrast shows chronic healing phase fracture deformities involving the left inferior and superior pubic rami, postoperative changes of the left total hip arthroplasty satisfactory appearance, large heterogeneous fluid collection in the left pelvic sidewall operative region likely representing hematoma -Orthopedics consulted, appreciate recommendations -Orthopedics has opted to for conservative management and is okay with resumption of Eliquis. Acute on chronic anemia -Hemoglobin on admission 7.5 -04/21 Hbg 6.8 s/p one unit of PRBCs -04/21 stool guaiac pending; she had colonscopy and EGD [place] -Her stool is occasionally dark colored -GI has been consulted for further evaluation -GI recommended resumption of anticoagulation for atrial fibrillation on 04/29 -04/22 H/H 11/17.4 -04/21 iron 21, TIBC 271, ferritin 192 -04/23 H/H 7.1/24.1 s/p 1 unit PRBC -Trend CBC -GI recommends follow-up with clinic few weeks of discharge for EGD/colonoscopy and would like to hold off anticoagulation till 04/29; has signed off Hypocalcemia -Presented with a calcium of 8 -Trend calcium -04/24 calcium 7.9 GERD, chronic -continue Protonix -Per GI: continue MVI/protonix, and follow serial hematocrits. -Agree with Cards, that Eliquis should hold another 4 days (resume AM) due to hip wound oozing. Asthma, chronic -History of asthma -Albuterol as needed DM, chronic -CC cardiac diet -Accu-Cheks AC at bedtime -SSI -Hypoglycemia protocol -04/20 hemoglobin A1c 5.6 Hypothyroidism, chronic -Resume home Synthroid -04/22 TSH 6.410, free T4 1.6 DVT prophylaxis -SCDs to bilateral lower extremities while in bed -Hold chemical anticoagulation in setting of anemia Hypokalemia, resolved -04/21 potassium 3.5 -Repleted -04/22 potassium 3.7 -Trend BMP -Intervene as needed History Interval history: This is a 64-year-old -Hungarian female with hypertension, A. fib on anticoagulation, diabetes, CHF, asthma, bronchitis, and hypothyroidism who presents to [facility] on 04/20 with complaints of bilateral lower extremity edema, palpitations, and shortness of breath worsening over the past 3 days. Cardiology, gastroenterology and orthopedic surgery was consulted. 04/21: Hemoglobin dropped to 6.8 this morning. Plan to transfuse 1 unit today, stool guaiac ordered-GI has been consulted. Patient complains of left hip pain- she recently had surgery on the left hip about 3 weeks prior to presentation 04/22: CT abdomen/pelvis which is concerning for hematoma, orthopedics has been consulted. Cardiology has opted to hold anticoagulation at this time. At the time my examination patient complains of new onset stutter however her NIH SS was 0. We will continue to monitor 04/23: Patient attempted to leave the facility overnight however she explained to me that she needed a phone charger tester and wanted to go to [facility] and purchase one. Patient's H/H noted to be 7.1/21.4 therefore she was transfused with 1 unit PRBC. Orthopedics consult is still pending. We will await restarting her systemic anticoagulation until orthopedic evaluations completed. 04/24: Awaiting ortho evaluation. Has no complaints. Hb stable 04/25: Orthopedic recs appreciated. OK to resume anticoagulation. Plan to manage hematoma conservatively. Anticoagulation to be resumed tomorrow as per GI 04/26: Patient had oozing from her Right hip, GI/Cardio will like to hold off anticoagulation for 4 days (resume 04/30). Ortho recommends conservative therapy. Patient is very upset and threatening to leave AGAINST MEDICAL ADVICE. Hospitalist Physical - Physical exam Narrative exam: Unable to be conducted due to patient agitation and noncooperation with attempts to conduct physical exam - Constitutional Vitals: Temp Pulse Resp BP Pulse Ox 98.1 F 86 22 99/61 96 04/26/20 08:15 04/26/20 11:12 04/26/20 08:15 04/26/20 08:15 04/26/20 08:15 General appearance: Present: no acute distress Results - Labs CBC & Chem 7: 04/26/20 04:49 04/24/20 04:55 Labs: Laboratory Last Values WBC 7.4 K/mm3 (4.5-11.0) 04/26/20 04:49 RBC 3.24 M/mm3 (3.65-5.03) L 04/26/20 04:49 Hgb 9.4 gm/dl (10.1-14.3) L 04/26/20 04:49 Hct 28.8 % (30.3-42.9) L 04/26/20 04:49 MCV 89 fl (79-97) 04/26/20 04:49 MCH 29 pg (28-32) 04/26/20 04:49 MCHC 33 % (30-34) 04/26/20 04:49 RDW 21.0 % (13.2-15.2) H 04/26/20 04:49 Plt Count 208 K/mm3 (140-440) 04/26/20 04:49 Lymph % (Auto) 17.0 % (13.4-35.0) 04/21/20 05:58 [place] % (Auto) 12.4 % (0.0-7.3) H 04/21/20 05:58 Eos % (Auto) 2.1 % (0.0-4.3) 04/21/20 05:58 Baso % (Auto) 0.6 % (0.0-1.8) 04/21/20 05:58 Lymph # (Auto) 1.2 K/mm3 (1.2-5.4) 04/21/20 05:58 [place] # (Auto) 0.9 K/mm3 (0.0-0.8) H 04/21/20 05:58 Eos # (Auto) 0.1 K/mm3 (0.0-0.4) 04/21/20 05:58 Baso # (Auto) 0.0 K/mm3 (0.0-0.1) 04/21/20 05:58 Seg Neutrophils % 67.9 % (40.0-70.0) 04/21/20 05:58 Seg Neutrophils # 4.6 K/mm3 (1.8-7.7) 04/21/20 05:58 PT 13.2 Sec. (12.2-14.9) 04/19/20 22:19 INR 1.01 (0.87-1.13) 04/19/20 22:19 Sodium 138 mmol/L (137-145) 04/24/20 04:55 Potassium 3.6 mmol/L (3.6-5.0) 04/24/20 04:55 Chloride 99.6 mmol/L (98-107) 04/24/20 04:55 Carbon Dioxide 26 mmol/L (22-30) 04/24/20 04:55 Anion Gap 16 mmol/L 04/24/20 04:55 BUN 12 mg/dL (7-17) 04/24/20 04:55 Creatinine 0.6 mg/dL (0.6-1.2) 04/24/20 04:55 Estimated GFR > 60 ml/min 04/24/20 04:55 BUN/Creatinine Ratio 20 % 04/24/20 04:55 Glucose 104 mg/dL (65-100) H 04/24/20 04:55 POC Glucose 105 mg/dL (70-105) 04/26/20 11:37 Hemoglobin A1c 5.1 % (4-6) 04/20/20 05:15 Calcium 7.9 mg/dL (8.4-10.2) L 04/24/20 04:55 Iron 21 ug/dL (37-170) L 04/21/20 08:55 TIBC 271 mcg/dL (250-450) 04/21/20 08:55 Ferritin 192.5 ng/mL (10.0-200.0) 04/21/20 08:55 Total Bilirubin 0.90 mg/dL (0.1-1.2) 04/19/20 22:19 AST 18 units/L (5-40) 04/19/20 22:19 ALT 13 units/L (7-56) 04/19/20 22:19 Alkaline Phosphatase 138 units/L (35-129) H 04/19/20 22:19 NT-Pro-B Natriuret Pep 476.3 pg/mL (0-900) 04/19/20 22:19 Total Protein 5.9 g/dL (6.3-8.2) L 04/19/20 22:19 Albumin 3.3 g/dL (3.9-5) L 04/19/20 22:19 Albumin/Globulin Ratio 1.3 % 04/19/20 22:19 TSH 6.410 mlU/mL (0.270-4.200) H 04/22/20 06:00 Free T4 1.61 ng/dL (0.76-1.46) H 04/22/20 06:00 Blood Type O NEGATIVE 04/21/20 08:26 Antibody Screen Negative 04/21/20 08:26 Crossmatch See Detail 04/21/20 08:26 - Diagnostic Impressions Diagnostic Impressions: Echocardiogram 04/20/20 04:26 Transthoracic Echocardiogram Indication: A fib RVR; CHF-AE BP: 121/64 HR: 107 Conclusions *Technically difficult and limted study. *Grossly, global left ventricular wall motion and contractility are within normal limits. *The estimated ejection fraction is 55-60%. *Abnormal left ventricular diastolic filling is observed, consistent with impaired relaxation. *A pacemaker wire is visualized in the right ventricle. *There is evidence of mild pulmonary hypertension. *There is no pericardial effusion. Findings Left Ventricle: The left ventricular chamber size is normal. There is no left ventricular hypertrophy. Global left ventricular wall motion and contractility are within normal limits. Global left ventricular systolic function is normal. The estimated ejection fraction is 55-60%. Abnormal left ventricular diastolic filling is observed, consistent with impaired relaxation. Left Atrium: The left atrium is mildly dilated. Right Ventricle: The right ventricular cavity size is normal. The right ventricular global systolic function is normal. A pacemaker wire is visualized in the right ventricle. Aortic Valve: There is no evidence of aortic valve thickening. There is trace of aortic regurgitation. Mitral Valve: The mitral valve leaflets do not appear thickened. There is trace of mitral regurgitation. Tricuspid Valve: The tricuspid valve leaflets are normal. There is mild tricuspid regurgitation. The right ventricular systolic pressure is calculated at 45 mmHg. There is evidence of mild pulmonary hypertension. Pulmonic Valve: There is no evidence of pulmonic valve thickening. There is trace pulmonic regurgitation. Pericardium: There is no pericardial effusion. Aorta: The aorta appears normal. Venous: The inferior vena cava is not visualized. Measurements Chambers 2D Name Value Normal Range IVSd (2D) 1.11 cm (0.6 - 1.1) LVPWd (2D) 0.91 cm (0.6 - 1.1) LVIDd (2D) 3.91 cm (3.7 - 5.6) LVIDs (2D) 2.58 cm (2 - 3.8) LV FS (2D) 33.99 % - EF Teichholz (2D) 63.56 % - Ao root diameter (2D) 2.93 cm (2 - 3.7) Volumes/Mass Name Value Normal Range LA ESV SP 4CH (A/L) 80.85 ml - LA ESV SP 2CH (A/L) 70.84 ml - LA ESV BP (A/L) 78.34 ml - LA ESV BP (A/L) index 40.59 ml/m2 - LA ESV SP 4CH (MOD) 76.33 ml - LA ESV SP 2CH (MOD) 67.49 ml - LA ESV BP (MOD) 73.9 ml - LA ESV BP (MOD) index 38.29 ml/m2 - Diastolic/Systolic Function Name Value Normal Range MV E-wave Vmax 0.77 m/sec - MV deceleration time 207.26 msec - MV A-wave Vmax 0.67 m/sec - MV E:A ratio 1.15 ratio - Aortic Valve Name Value Normal Range AV Vmax 1.73 m/sec - AV VTI 29.62 cm - AV peak gradient 11.9 mmHg - AV mean gradient 6.35 mmHg - LVOT diameter 2.13 cm - LVOT Vmax 1.09 m/sec - LVOT VTI 21.25 cm - LVOT peak gradient 5.06 mmHg - LVOT mean gradient 2.74 mmHg - SV LVOT 75.59 ml - WILIAN (continuity Vmax) 2.24 cm2 - WILIAN (continuity VTI) 2.55 cm2 - AR PHT 492.62 msec - AR peak gradient 80.97 mmHg - Ascending Ao 3.25 cm - Tricuspid Valve Name Value Normal Range TR Vmax 3.06 m/sec - TR peak gradient 37 mmHg - RAP 8 mmHg - RVSP 45 mmHg - Pulmonic Valve/Qp:Qs Name Value Normal Range PV Vmax 1.37 m/sec - PV peak gradient 7.54 mmHg - CA end-diastolic Vmax 1.42 m/sec - PV acceleration time 91.34 msec - [place]/IV: Voiding Method Toilet IV Catheter Type [Right INT / Saline Lock Antecubital] IV Catheter Type [Right INT / Saline Lock External Jugular] Active Medications - Current Medications Current Medications: Generic Name Dose Route Start Last Admin Trade Name Freq PRN Reason Stop Dose Admin Acetaminophen 650 mg 04/20/20 04:28 Acetaminophen 325 Mg Tab PO Q4H PRN Pain MILD(1-3)/Fever >100.5/MULLINS Albuterol 2.5 mg 04/20/20 04:28 Albuterol 2.5 Mg/3 Ml Nebu IH Q3HRT PRN Shortness Of Breath Amiodarone HCl 200 mg 04/24/20 14:00 04/26/20 11:12 Amiodarone 200 Mg Tab PO 200 mg QDAY WILLIE Administration Dextrose 0 ml 04/20/20 04:28 Dextrose 50% In Water (25gm) 50 Ml Syringe IV Q30MIN PRN Hypoglycemia Protocol Docusate Sodium 100 mg 04/20/20 10:00 04/26/20 11:13 Docusate Sodium 100 Mg Cap PO 100 mg BID WILLIE Administration Furosemide 40 mg 04/26/20 10:00 04/26/20 11:11 Furosemide 40 Mg Tab PO 40 mg QDAY WILLIE Administration Insulin Human Lispro 0 unit 04/20/20 07:30 04/26/20 11:00 Insulin Lispro 100 Unit/Ml SUB-Q Not Given ACHS WILLIE Protocol Metoprolol Succinate 50 mg 04/25/20 10:00 04/26/20 11:12 Metoprolol Succinate Xl 50 Mg Tab PO 50 mg QDAY WILLIE Administration Morphine Sulfate 2 mg 04/20/20 04:26 Morphine 2 Mg/1 Ml Inj IV Q5MIN PRN Chest Pain unrelieved by NTG Multivitamins/Minerals 1 each 04/24/20 12:00 04/26/20 11:13 Multivitamins,Ther W-Minerals Tab PO 1 each QDAY WILLIE Administration Nitroglycerin 0.4 mg 04/20/20 04:26 Nitroglycerin 0.4 Mg Tab Subl SL .Q5MIN PRN Chest Pain Ondansetron HCl 4 mg 04/20/20 04:28 Ondansetron 4 Mg/2 Ml Inj IV Q8H PRN Nausea And Vomiting Oxycodone/Acetaminophen 1 tab 04/20/20 04:28 04/25/20 21:55 Oxycodone /Acetaminophen 5-325mg Tab PO 1 tab Q6H PRN Administration Pain, Moderate (4-6) Pantoprazole Sodium 40 mg 04/22/20 10:00 04/26/20 11:15 Pantoprazole 40 Mg Tab PO 40 mg QDAC WILLIE Administration Potassium Chloride 10 meq 04/20/20 10:00 04/26/20 11:12 Potassium Chloride Er 10 Meq Tab PO 10 meq QDAY WILLIE Administration Sodium Chloride 10 ml 04/20/20 10:00 04/25/20 21:56 Sodium Chloride 0.9% 10 Ml Flush Syringe IV 10 ml BID WILLIE Administration Sodium Chloride 10 ml 04/20/20 04:28 Sodium Chloride 0.9% 10 Ml Flush Syringe IV PRN PRN LINE FLUSH
[2020-04-26 17:40] LABS: Hematocrit 29.3 % (30.3-42.9); Hemoglobin 9.6 gm/dl (10.1-14.3)
[2020-04-26 17:58] LABS: BUN/Creatinine Ratio 19; Blood Urea Nitrogen 17 mg/dL (7-17); Hemolysis Index 5
[2020-04-26] MEDS ORDERED: MAGNESIUM SULFATE 4 GM/100 ML BAG IV ONE ×2 (18:10→18:30)
[2020-04-26] MEDS: oxyCODONE /ACETAMINOPHEN 5-325MG TAB PO PRN (21:31)
[2020-04-26] MEDS ORDERED: diphenhydrAMINE 25 MG CAP PO PRN (22:31)
[2020-04-27 07:18] LABS: Hematocrit 30.5 % (30.3-42.9); Hemoglobin 9.7 gm/dl (10.1-14.3); Mean Corpuscular HGB Conc 32 % (30-34); Mean Corpuscular Volume 90 fl (79-97); Platelet Count 198 K/mm3 (140-440); Red Blood Count 3.38 M/mm3 (3.65-5.03)
[2020-04-27 08:24] LABS: BUN/Creatinine Ratio 21; Blood Urea Nitrogen 19 mg/dL (7-17); Calcium 8.4 mg/dL (8.4-10.2); Hemolysis Index 7
[2020-04-27] MEDS: INSULIN LISPRO 100 UNIT/ML SUB-Q SCH (08:57)
[2020-04-27] MEDS: METOPROLOL SUCCINATE XL 50 MG TAB PO SCH (09:27)
[2020-04-27] MEDS: POTASSIUM CHLORIDE ER 10 MEQ TAB PO SCH (09:34)
[2020-04-27] MEDS: FUROSEMIDE 40 MG TAB PO SCH (09:34)
[2020-04-27] MEDS: DOCUSATE SODIUM 100 MG CAP PO SCH (09:35)
[2020-04-27] MEDS: PANTOPRAZOLE 40 MG TAB PO SCH (09:35)
[2020-04-27] MEDS: AMIODARONE 200 MG TAB PO SCH (09:35)
[2020-04-27] MEDS: MULTIVITAMINS,THER W-MINERALS TAB PO SCH (09:57)
[2020-04-27 10:47] VITALS: BP 98/60
--- NOTE | 2020-04-27 13:37 | Discharge Summary ---
Providers - Providers Date of Admission: 04/20/20 16:25 Date of discharge: 04/27/20 Attending physician: DIO SHIELDS 04/20/20 04:25 Consult to Physician [CONS] Routine Comment: Consulting Provider: DANIEL NICOLE Physician Instructions: Reason For Exam: a.fib RVR, CHF-AE 04/20/20 13:23 Consult to Physician [CONS] Routine Comment: Consulting Provider: JASWINDER DAVIS Physician Instructions: Reason For Exam: Anemia - possible GI bleed. 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 repeat CBC in one week. f/u with dredge pipe installer in one week Follow up with: MEHRAN AN MD [Primary Care Provider] - 3-5 Days DANIEL NICOLE MD [Staff Physician] - 7 Days Prescriptions: Docusate Sodium [Colace CAP] 100 mg PO BID #60 capsule Amiodarone [Cordarone 200 MG TAB] 200 mg PO QDAY #30 tablet Apixaban [Eliquis] 5 mg PO DAILY #30 tablet Potassium Chloride [K-Dur] 10 meq PO QDAY #30 tablet Furosemide [Lasix TAB] 40 mg PO QDAY #30 tablet Metoprolol Xl [Metoprolol SUCCINATE ER TAB] 50 mg PO QDAY #30 tablet Oxycodone HCl/Acetaminophen [Percocet 10/325 mg] 1 each PO Q6HR PRN #30 tablet PRN Reason: Pain oxyCODONE /ACETAMINOPHEN [Percocet 5/325 mg] 1 tab PO Q6H PRN #10 tablet PRN Reason: Pain, Moderate (4-6) Pantoprazole [Protonix TAB] 40 mg PO QDAC #30 tablet
== END 2020-04-27 17:35 | disposition home health service (06) | DRG 308 ==
LOC: ED 20:16 → 4A 04-20 04:20 → CC1 04-20 06:06 → 4A 04-20 14:32 → OBSVTOIN 04-20 16:25 → 4A 04-20 17:38
PROVIDERS: ADMIT Hospitalist; ATTEND Internal Medicine
PROC: 30233N1 Transfusion of Nonautologous Red Blood Cells into Peripheral Vein, Percutaneous Approach (ICD-10-PCS; principal; 2020-04-23)
DX: I48.0 Paroxysmal atrial fibrillation (principal); I50.33 Acute on chronic diastolic (congestive) heart failure; K92.2 Gastrointestinal hemorrhage, unspecified; E87.6 Hypokalemia; I11.0 Hypertensive heart disease with heart failure; E11.9 Type 2 diabetes mellitus without complications; E03.9 Hypothyroidism, unspecified; K21.9 Gastro-esophageal reflux disease without esophagitis; I27.20 Pulmonary hypertension, unspecified; D50.9 Iron deficiency anemia, unspecified; E66.9 Obesity, unspecified; S70.02XA Contusion of left hip, initial encounter; Z96.642 Presence of left artificial hip joint; E83.42 Hypomagnesemia; I49.8 Other specified cardiac arrhythmias; E83.51 Hypocalcemia; X58.XXXA Exposure to other specified factors, initial encounter; J45.909 Unspecified asthma, uncomplicated; Z95.0 Presence of cardiac pacemaker; Z90.49 Acquired absence of other specified parts of digestive tract; Z82.49 Family history of ischemic heart disease and other diseases of the circulatory system; Z87.891 Personal history of nicotine dependence; Z91.14 Patient's other noncompliance with medication regimen; Z88.8 Allergy status to other drugs, medicaments and biological substances; Y93.89 Activity, other specified; Y92.89 Other specified places as the place of occurrence of the external cause; Y99.8 Other external cause status; Z68.27 Body mass index [BMI] 27.0-27.9, adult
CPT/HCPCS: 36415; 71046; 72193; 80048; 80053; 82728; 82962; 83036; 83550; 83735; 83880; 84439; 84443; 85014; 85018; 85025; 85027; 85610; 86850; 86900; 86901; 86920; 87040; 93005; 93306; 94640; 96365; 96375; G0378; J0282; J1940; J3475; J7040; J7060; P9016; Q9967